=== PATIENT | female | born 1940 | race Hispanic/Latino ===

== ENCOUNTER 2016-11-07 12:01 | Inpatient (IN) | payer MEDICARE, OTHER ==
--- NOTE | 2016-11-07 12:27 | ED PDOC ---
Arrival/HPI - General Chief Complaint: Weakness/Neurological Deficit Time Seen by Provider: 11/07/16 12:02 Historian: Patient - History of Present Illness Narrative History of Present Illness (Text): 11/07/16 12:24 A 76 year old female was brought into the emergency department by daughter complaining of generalized weakness. Daughter reports patient fell twice last night and was unable to ambulate this morning due to her weakness. Patient reports she has been experiencing episodes of dizziness for the past few weeks causing her to fall. Patient notes back pain but denies any fever, chills, nausea, vomiting, abdominal pain, chest pain, shortness of breath, cough or any other complaints. Time/Duration: Other (few weeks) Symptom Course: Unchanged Quality: Other Context: Home Past Medical History - Provider Review Nursing Documentation Reviewed: Yes - Infectious Disease Hx of Infectious Diseases: None - Reproductive Menopause: Yes - Psychiatric Hx Substance Use: No Family/Social History - Physician Review Nursing Documentation Reviewed: Yes Family/Social History: No Known Family HX Smoking Status: Current Some Days Smoker Hx Alcohol Use: No Hx Substance Use: No Allergies/Home Meds Allergies/Adverse Reactions: Allergies No Known Allergies Allergy (Verified 11/07/16 12:09) Home Medications: Home Meds Medication Instructions Recorded Confirmed Fentanyl [Duragesic Patch] 100 mcg TOP Q72 11/07/16 11/07/16 Folic Acid [Folic Acid] 1 mg PO DAILY 11/07/16 11/07/16 Furosemide [Lasix] 40 mg PO DAILY 11/07/16 11/07/16 Gabapentin [Neurontin] 100 mg PO HS 11/07/16 11/07/16 Meloxicam [Mobic] 15 mg PO DAILY 11/07/16 11/07/16 Methotrexate [Methotrexate] 7 tab PO QWK 11/07/16 11/07/16 Valsartan/Hydrochlorothiazide 1 tab PO DAILY 11/07/16 11/07/16 [Diovan Hct 320-12.5 mg Tab] Zolpidem [Ambien] 10 mg PO HS 11/07/16 11/07/16 oxyCODONE [oxyCODONE Immediate 10 mg PO TID 11/07/16 11/07/16 Release Tab] Review of Systems - Physician Review All systems were reviewed & negative as marked: Yes - Review of Systems Constitutional: Other (Generalized weakness). absent: Fevers, Night Sweats Respiratory: absent: SOB, Cough Cardiovascular: absent: Chest Pain Gastrointestinal: absent: Abdominal Pain, Nausea, Vomiting Musculoskeletal: Back Pain Neurological: Dizziness Physical Exam Vital Signs Reviewed: Yes Vital Signs Temp Pulse Resp BP Pulse Ox 11/07/16 15:00 120 H 20 117/75 94 L 11/07/16 12:01 98.3 F 125 H 16 125/90 95 Temperature: Afebrile Blood Pressure: Normal Pulse: Tachycardic Respiratory Rate: Normal Appearance: Positive for: Well-Appearing, Non-Toxic, Comfortable Pain Distress: None Mental Status: Positive for: Alert and Oriented X 3 - Systems Exam Head: Present: Atraumatic, Normocephalic Pupils: Present: PERRL Extroacular Muscles: Present: EOMI Conjunctiva: Present: Normal Ears: Present: Other (Hard of hearing) Mouth: Present: Moist Mucous Membranes Neck: Present: Normal Range of Motion. No: MIDLINE TENDERNESS Respiratory/Chest: Present: Clear to Auscultation, Good Air Exchange. No: Respiratory Distress, Accessory Muscle Use Cardiovascular: Present: Regular Rate and Rhythm, Normal S1, S2. No: Murmurs Abdomen: Present: Normal Bowel Sounds. No: Tenderness, Distention, Peritoneal Signs Back: Present: Normal Inspection, Other (vertebral tenderness) Upper Extremity: Present: Normal Inspection, Normal ROM, NORMAL PULSES. No: Cyanosis, Edema Lower Extremity: Present: Edema (+1 pitting edema bilaterally), NORMAL PULSES, Normal ROM (in bilateral hips/knees), Other (Generalized weakness in bilateral extremities). No: CALF TENDERNESS, Tenderness Neurological: Present: GCS=15, CN II-XII Intact, Speech Normal, Motor Func Grossly Intact, Normal Sensory Function, Normal Cerebellar Funct, Norm Deep Tendon Reflexes. No: Other (neuro deficits) Skin: Present: Warm, Dry, Normal Color, Abrasion (superificial skin tear in right upper extremity ). No: Rashes Psychiatric: Present: Alert, Oriented x 3, Normal Insight, Normal Concentration Medical Decision Making ED Course and Treatment: 11/07/16 12:24 EKG shows multifocal atrial tachycardia at [address]/T wave changes. Interpreted by me. Report Date : 11/07/2016 13:13:19 Procedure: Chest xray Dictator : Nik Pascual MD IMPRESSION: There is a patchy infiltrate in the right upper lobe. Nodular densities are seen in the left upper lobe. These could also be secondary to pneumonia. Metastatic nodules cannot be excluded Report Date : 11/07/2016 13:29:56 PROCEDURE: CT HEAD WITHOUT CONTRAST. Dictator : Nik Pascual MD IMPRESSION: No acute findings Disc w Dr Tracey who will admit - Lab Interpretations Lab Results: 11/07/16 12:50 11/07/16 12:50 Lab Results 11/07/16 13:43: Urine Color Yellow, Urine Appearance Sl cloudy, Urine pH 6.0, Ur Specific [place] 1.025, Urine Protein 100 H, Urine Glucose (UA) Negative, Urine Ketones Negative, Urine Blood Negative, Urine Nitrate Negative, Urine Bilirubin Negative, Urine Urobilinogen 0.2, Ur Leukocyte Esterase Negative, Urine RBC Negative, Urine WBC 0 - 2, Urine Bacteria Trace 11/07/16 12:50: TSH 3rd Generation 0.44 L 11/07/16 12:50: Sodium 133, Potassium 3.2 L, Chloride 96 L, Carbon Dioxide 27, Anion Gap 13, BUN 28 H, Creatinine 1.2, Est GFR ( Amer) 53, Est GFR (Non- Af Amer) 44, Random Glucose 106, Calcium 9.0, Total Bilirubin 0.9, AST 22, ALT 41, Alkaline Phosphatase 183 H, Troponin I 0.02, NT-Pro-B Natriuret Pep 7750 H, Total Protein 5.9, Albumin 3.4, Globulin 2.5, Albumin/Globulin Ratio 1.4 11/07/16 12:50: pO2 132 H, VBG pH 7.49 H, VBG pCO2 38.0 L, VBG HCO3 29.0 H, VBG O2 Sat (Calc) 99.9 H, VBG Base Excess 5.4 H 11/07/16 12:50: WBC 20.7 H, RBC 3.32 L, Hgb 9.8 L, Hct 29.2 L, MCV 88.0, MCH 29.5, MCHC 33.6, RDW 19.1 H, Plt Count 332, MPV 9.7, Gran % 85.0 H, Lymph % ( Auto) 2.6 L, [place] % (Auto) 9.4 H, Eos % (Auto) 2.9, Baso % (Auto) 0.1, Gran # 17.56 H, Lymph # 0.5 L, [place] # 1.9 H, Eos # 0.6, Baso # 0.03 11/07/16 12:16: POC Glucose (mg/dL) 116 H - RAD Interpretation Radiology Orders: 11/07/16 12:24 HEAD W/O CONTRAST [CT] Stat CHEST PORTABLE [RAD] Stat - Medication Orders Current Medication Orders: Discontinued Medications Sodium Chloride (Sodium Chloride 0.9%) 500 mls @ 999 mls/hr IV .Q31M STA Stop: 11/07/16 14:20 Last Admin: 11/07/16 14:59 Dose: 999 mls/hr Ceftriaxone Sodium (Rocephin 1 Gram Ivpb) 1 gm in 100 mls @ 200 mls/hr IVPB STAT STA PRN Reason: Protocol Stop: 11/07/16 14:20 Last Admin: 11/07/16 14:53 Dose: 200 mls/hr Azithromycin (Zithromax 500mg In Ns) 500 mg in 250 mls @ 167 mls/hr IVPB STAT STA PRN Reason: Protocol Stop: 11/07/16 15:20 Oxycodone HCl (Oxycodone Immediate Release Tab) 5 mg PO STAT STA Stop: 11/07/16 13:58 Last Admin: 11/07/16 14:51 Dose: 5 mg - Scribe Statement The provider has reviewed the documentation as recorded by the Farzad Brice Provider Scribe Attestation: All medical record entries made by the Scribe were at my direction and personally dictated by me. I have reviewed the chart and agree that the record accurately reflects my personal performance of the history, physical exam, medical decision making, and the department course for this patient. I have also personally directed, reviewed, and agree with the discharge instructions and disposition. Disposition/Present on Arrival - Present on Arrival Any Indicators Present on Arrival: No History of DVT/PE: No History of Uncontrolled Diabetes: No Urinary Catheter: No History of Decub. Ulcer: No History Surgical Site Infection Following: None - Disposition Have Diagnosis and Disposition been Completed?: Yes Diagnosis: Pneumonia Disposition: HOSPITALIZED Disposition Time: 14:29 Patient Problems: Current Active Problems Problem Status Onset Pneumonia Acute Condition: STABLE
[2016-11-07 13:04] LABS: VENOUS BLOOD GAS BASE EXCESS 5.4 mmol/L (0.0-2.0); VENOUS BLOOD GAS PO2 132 mm/Hg (30-55); VENOUS BLOOD PH 7.49 (7.32-7.43)
[2016-11-07 13:07] LABS: BASO # 0.03 K/mm3 (0.0-2.0); BASO % 0.1 % (0.0-3.0); EOS # 0.6 (0.0-0.7); EOS % 2.9 % (1.5-5.0); GRAN # 17.56 (1.4-6.5); HEMOGLOBIN 9.8 gm/dL (12.0-16.0); LYMPH # 0.5 (1.2-3.4); LYMPH % 2.6 % (22.0-35.0); MEAN CORPUSCULAR HEMOGLOBIN 29.5 pg (25.0-35.0); MEAN CORPUSCULAR HGB CONC 33.6 g/dl (31.0-37.0); MEAN PLATELET VOLUME 9.7 fl (7.0-11.0); MONO # 1.9 (0.1-0.6); MONO % 9.4 % (1.0-6.0); PLATELET COUNT 332 10^3/uL (120.0-450.0); RBC 3.32 10^6/uL (3.5-6.1); RED CELL DISTRIBUTION WIDTH 19.1 % (11.5-14.5); WHITE BLOOD COUNT 20.7 10^3/ul (4.5-11.0)
[2016-11-07 13:13] LABS: ALB/GLOB RATIO 1.4 (1.1-1.8); ALBUMIN 3.4 g/dL (3.0-4.8)
--- NOTE | 2016-11-07 13:14 | RAD ---
HISTORY: weak COMPARISON: No prior. FINDINGS: LUNGS: There is a patchy infiltrate in the right upper lobe. Nodular densities are seen in the left upper lobe. These could also be secondary to pneumonia. Metastatic nodules cannot be excluded PLEURA: No significant pleural effusion identified, no pneumothorax apparent. CARDIOVASCULAR: Normal. OSSEOUS STRUCTURES: No significant abnormalities. VISUALIZED UPPER ABDOMEN: Normal. OTHER FINDINGS: None. IMPRESSION: There is a patchy infiltrate in the right upper lobe. Nodular densities are seen in the left upper lobe. These could also be secondary to pneumonia. Metastatic nodules cannot be excluded
[2016-11-07 13:24] LABS: TROPONIN I 0.02 ng/mL
--- NOTE | 2016-11-07 13:31 | CT ---
PROCEDURE: CT HEAD WITHOUT CONTRAST. HISTORY: weak, falls COMPARISON: None available. TECHNIQUE: Axial computed tomography images were obtained through the head/brain without intravenous contrast. Radiation dose: Total exam DLP = 688 mGy-cm. This CT exam was performed using one or more of the following dose reduction techniques: Automated exposure control, adjustment of the mA and/or kV according to patient size, and/or use of iterative reconstruction technique. FINDINGS: HEMORRHAGE: No intracranial hemorrhage. BRAIN: No mass effect or edema. No atrophy or chronic microvascular ischemic changes. VENTRICLES: Unremarkable. No hydrocephalus. CALVARIUM: Unremarkable. PARANASAL SINUSES: Unremarkable as visualized. No significant inflammatory changes. MASTOID AIR CELLS: Unremarkable as visualized. No inflammatory changes. OTHER FINDINGS: None. IMPRESSION: No acute findings
[2016-11-07] MEDS ORDERED: Sodium Chloride 0.9% 500 ML IV STA (13:50)
[2016-11-07] MEDS ORDERED: Azithromycin 500MG/NS 250ml 500 MG/250 ML BAG IVPB STA (13:51)
[2016-11-07] MEDS ORDERED: cefTRIAXone 1 gm 1 GM/100 ML BAG IVPB STA (13:51)
[2016-11-07] MEDS ORDERED: oxyCODONE 5 mg Immediate Release Tab PO STA (13:57)
[2016-11-07 14:01] LABS: URINE BILIRUBIN NEGATIVE (NEGATIVE); URINE BLOOD NEGATIVE (NEGATIVE); URINE GLUCOSE (UA) NEGATIVE (NEGATIVE); URINE LEUKOCYTE ESTERASE NEGATIVE Leu/uL (NEGATIVE); URINE NITRATE NEGATIVE (NEGATIVE); URINE PROTEIN 100 mg/dL (<30 mg/dL); URINE UROBILINOGEN 0.2 E.U./dL (<1 E.U./dL)
[2016-11-07 14:06] LABS: URINE APPEARANCE SL CLOUDY (CLEAR); URINE COLOR YELLOW (YELLOW)
[2016-11-07 14:11] LABS: URINE BACTERIA TRACE (NEG); URINE RBC NEGATIVE /hpf (0-2); URINE WBC 0 - 2 /hpf (0-6)
[2016-11-07] MEDS ORDERED: Potassium Chloride 20 mEq ER Tab PO STA (16:02)
[2016-11-07 18:26] VITALS: BMI 24.5
[2016-11-07] MEDS ORDERED: Albuterol-Ipratrop 3 mg / 0.5 (3 ml) UD IH PRN (19:19)
[2016-11-07] MEDS ORDERED: Dextrose 5%/0.45% NS 1,000 ML IV SCH (19:30)
[2016-11-07] MEDS ORDERED: oxyCODONE 10 mg Immediate Release Tab PO ONE (19:51)
--- NOTE | 2016-11-07 19:59 | CARD ---
APPROVED REPORT EKG Measurement Heart [id number] <Conclusion> Sinus tachycardia with premature supraventricular complexes with occasional premature ventricular complexes ST & T wave abnormality, consider lateral ischemia Abnormal ECG
--- NOTE | 2016-11-07 21:52 | CT ---
EXAM: CT Chest Without Intravenous Contrast CLINICAL HISTORY: 76 years old, female; Condition or disease; Other: Pnuemonia; Additional info: Rul pneumonia TECHNIQUE: Axial computed tomography images of the chest without intravenous contrast. This CT exam was performed using one or more of the following dose reduction techniques: automated exposure control, adjustment of the mA and/or kV according to patient size, and/or use of iterative reconstruction technique. MIP reconstructed images were created and reviewed. Coronal and sagittal reformatted images were created and reviewed. COMPARISON: CT CHEST W/O 10/10/2011 12:08:23 PM FINDINGS: Lungs/pleura: Multiple bilateral lung nodules and masses of variable size, appearance most consistent with metastatic disease. Correlate with history. Some of the nodules/masses demonstrate cavitation. Some of the masses abut the mediastinum and the pleura. In the right upper lobe there are increased interstitial markings and airspace disease in association with right hilar mass and adenopathy. Concerning for post obstructive pneumonic process. No pneumothorax. Evidence of trace left pleural fluid. Heart: Cardiomegaly. No significant pericardial effusion. Valvular and coronary artery calcification. Bones: Lytic lesion in the left T5 6 and 9 vertebral body with associated soft tissue mass impressing upon the spinal canal. Compression deformity of superior endplate of T12. Evidence of additional more subtle osseous metastases, subtle lytic focus in T6 vertebral body. Vasculature: Limited evaluation without contrast. Aortic aneurysm, the ascending aorta is measured at 5 cm in diameter, the descending thoracic aorta is measured at 3.3 cm in diameter. Atherosclerosis. Lymph nodes: Mediastinal and hilar adenopathy. Evaluation of doron limited without contrast. IMPRESSION: Multiple bilateral lung nodules and masses of variable size, appearance most consistent with metastatic disease. Correlate with history. Some of the nodules/masses demonstrate cavitation. Some of the masses abut the mediastinum and the pleura. In the right upper lobe there are increased interstitial markings and airspace disease in association with right hilar mass and adenopathy. Concerning for post obstructive pneumonic process. Lytic lesion in the left T5 6 and 9 vertebral body with associated soft tissue mass impressing upon the spinal canal. Compression deformity of superior endplate of T12. Evidence of additional more subtle osseous metastases, subtle lytic focus in T6 vertebral body. Adenopathy. Aortic aneurysm, the ascending aorta is measured at 5 cm in diameter, the descending thoracic aorta is measured at 3.3 cm in diameter. Atherosclerosis. Cardiomegaly. Valvular and coronary artery calcification. Correlate with history. Consider followup CT of the chest, abdomen and pelvis with contrast.
[2016-11-08] MEDS: Insulin Reg-MEDIUM-Coverage SC SCH ×3 (01:47→21:36)
[2016-11-08] MEDS: Pantoprazole 40 mg EC Tab PO SCH (06:08)
[2016-11-08 07:15] LABS: BASO # 0.04 K/mm3 (0.0-2.0); BASO % 0.2 % (0.0-3.0); EOS # 1.4 (0.0-0.7); EOS % 8.1 % (1.5-5.0); GRAN # 12.53 (1.4-6.5); GRAN % 74.4 % (50.0-68.0); HEMOGLOBIN 9.1 gm/dL (12.0-16.0); LYMPH # 0.6 (1.2-3.4); LYMPH % 3.5 % (22.0-35.0); MEAN CELL VOLUME 89.6 fL (80.0-105.0); MEAN CORPUSCULAR HEMOGLOBIN 29.5 pg (25.0-35.0); MEAN PLATELET VOLUME 9.6 fl (7.0-11.0); MONO # 2.3 (0.1-0.6); MONO % 13.8 % (1.0-6.0); PLATELET COUNT 335 10^3/uL (120.0-450.0); RBC 3.08 10^6/uL (3.5-6.1); RED CELL DISTRIBUTION WIDTH 19.3 % (11.5-14.5); WHITE BLOOD COUNT 16.9 10^3/ul (4.5-11.0)
[2016-11-08] MEDS: Albuterol-Ipratrop 3 mg / 0.5 (3 ml) UD IH SCH ×3 (07:16→20:00)
[2016-11-08 07:43] LABS: ALB/GLOB RATIO 1.2 (1.1-1.8); CALCIUM 8.5 mg/dL (8.4-10.5)
--- NOTE | 2016-11-08 08:32 | CP.PCM.CON ---
History of Present Illness - History of Present Illness History of Present Illness: WEAKNESS Review of Systems - Constitutional Constitutional: Anorexia, Weight Loss (30 POUNDS IN ONE YEAR), Weakness - EENT Eyes: Dry Eye Nose/Mouth/Throat: Dry Mouth - Respiratory Respiratory: Cough, Pain with Coughing Past Patient History - Infectious Disease Hx of Infectious Diseases: None - Past Medical History & Family History Past Medical History?: Yes - Past Social History Smoking Status: Heavy Smoker > 10 Cigarettes Daily - CARDIAC Hx Hypertension: Yes - PULMONARY Hx Chronic Obstructive Pulmonary Disease (COPD): Yes - HEENT Hx HEENT Problems: Yes (wears glasses) - INTEGUMENTARY Hx Cellulitis: Yes Other/Comment: ulcers to lower extremeties - MUSCULOSKELETAL/RHEUMATOLOGICAL Hx Arthritis: Yes Hx Back Pain: Yes (BUT NOW MORE BACK PAIN) Hx Falls: Yes Hx Fractures: Yes Hx Osteoarthritis: Yes - PSYCHIATRIC Hx Substance Use: No - SURGICAL HISTORY Hx Joint Replacement: Yes (left knee) Meds Allergies/Adverse Reactions: Allergies Allergy/AdvReac Type Severity Reaction Status Date / Time No Known Allergies Allergy Verified 11/07/16 12:09 - Medications Medications: Current Medications Acetaminophen (Tylenol 325mg Tab) 650 mg PO Q6H PRN PRN Reason: Fever >100.4 F Albuterol/Ipratropium (Duoneb 3 Mg/0.5 Mg (3 Ml) Ud) 3 ml IH [id number] CLARA Last Admin: 11/08/16 07:16 Dose: 3 ml Albuterol/Ipratropium (Duoneb 3 Mg/0.5 Mg (3 Ml) Ud) 3 ml IH Q2H PRN PRN Reason: Shortness of Breath Fentanyl (Duragesic) 1 patch TD Q72H CLARA Folic Acid (Folic Acid) 1 mg PO DAILY CLARA Furosemide (Lasix) 40 mg IVP DAILY CLARA Gabapentin (Neurontin) 100 mg PO HS CLARA PRN Reason: Protocol Last Admin: 11/07/16 21:16 Dose: 100 mg Ceftriaxone Sodium (Rocephin 1 Gram Ivpb) 1 gm in 100 mls @ 100 mls/hr IVPB DAILY CLARA PRN Reason: Protocol Azithromycin (Zithromax 500mg In Ns) 500 mg in 250 mls @ 167 mls/hr IVPB DAILY CLARA PRN Reason: Protocol Insulin Human Regular (Humulin R Med) 0 units SC ACHS CLARA PRN Reason: Protocol Last Admin: 11/08/16 07:58 Dose: Not Given Oxycodone HCl (Oxycodone Immediate Release Tab) 10 mg PO TID CLARA Pantoprazole Sodium (Protonix Ec Tab) 40 mg PO 0630 [facility] Last Admin: 11/08/16 06:08 Dose: 40 mg Valsartan (Diovan) 320 mg PO DAILY CLARA Zolpidem Tartrate (Ambien) 5 mg PO HS CLARA PRN Reason: Protocol Last Admin: 11/07/16 21:16 Dose: 5 mg Physical Exam - Constitutional Appears: Well - Head Exam Head Exam: ATRAUMATIC, NORMAL INSPECTION, NORMOCEPHALIC - Eye Exam Eye Exam: EOMI, Normal appearance, PERRL Pupil Exam: NORMAL ACCOMODATION, PERRL - ENT Exam ENT Exam: Mucous Membranes Moist, Normal Exam - Neck Exam Neck exam: Positive for: Normal Inspection - Respiratory Exam Respiratory Exam: Clear to Auscultation Bilateral, NORMAL BREATHING PATTERN - Cardiovascular Exam Cardiovascular Exam: REGULAR RHYTHM - GI/Abdominal Exam GI & Abdominal Exam: Normal Bowel Sounds, Soft. absent: Tenderness - Rectal Exam Rectal Exam: NORMAL INSPECTION - Exam Exam: Circumcision, NORMAL INSPECTION External exam: NORMAL EXTERNAL EXAM Speculum exam: NORMAL SPECULUM EXAM Bimanual exam: NORMAL BIMANUAL EXAM - Extremities Exam Extremities exam: Positive for: full ROM (OPEN ULCER RIGHT ARM BUT NO INFEVTION) , normal inspection - Back Exam Back exam: muscle spasm, NORMAL INSPECTION, tenderness - Neurological Exam Neurological exam: Alert, CN II-XII Intact, Normal Gait, Oriented x3, Reflexes Normal - Psychiatric Exam Psychiatric exam: Normal Affect, Normal Mood - Skin Skin Exam: Dry, Intact, Normal Color, Warm Results - Vital Signs Recent Vital Signs: Last Vital Signs Temp 98.2 F 11/08/16 07:38 Pulse 83 11/08/16 07:38 Resp 20 11/08/16 07:38 BP 129/56 L 11/08/16 07:38 Pulse Ox 96 11/08/16 07:38 - Labs Result Diagrams: 11/08/16 06:30 11/08/16 06:30 Labs: Laboratory Results - last 24 hr 11/07/16 11/08/16 11/08/16 21:11 06:30 06:30 WBC 16.9 H RBC 3.08 L Hgb 9.1 L Hct 27.6 L MCV 89.6 MCH 29.5 MCHC 33.0 RDW 19.3 H Plt Count 335 MPV 9.6 Gran % 74.4 H Lymph % (Auto) 3.5 L [place] % (Auto) 13.8 H Eos % (Auto) 8.1 H Baso % (Auto) 0.2 Gran # 12.53 H Lymph # 0.6 L [place] # 2.3 H Eos # 1.4 H Baso # 0.04 Sodium 133 Potassium 3.8 Chloride 98 Carbon Dioxide 26 Anion Gap 13 BUN 30 H Creatinine 1.3 Est GFR ( Amer) 48 Est GFR (Non-Af Amer) 40 POC Glucose (mg/dL) 125 H Random Glucose 101 Calcium 8.5 Phosphorus 4.0 Magnesium 2.0 Total Bilirubin 0.8 AST 20 ALT 36 Alkaline Phosphatase 172 H Total Protein 5.5 L Albumin 3.0 Globulin 2.5 Albumin/Globulin Ratio 1.2 Assessment & Plan (1) Anemia Status: Acute (2) Sepsis Status: Acute (3) Obstructive pneumonia Status: Acute (4) Pulmonary nodule Status: Acute (5) Metastasis Status: Acute (6) Bone metastases Status: Acute (7) Mediastinal adenopathy Status: Acute (8) Aortic aneurysm Status: Acute - Assessment and Plan (Free Text) Plan: ROCE /DOXY WORK UP FOR METS PROGNOSIS POOR
[2016-11-08] MEDS ORDERED: VALSARTAN PO SCH (10:00)
[2016-11-08] MEDS ORDERED: HYDROCHLOROTHIAZIDE PO SCH (10:00)
[2016-11-08] MEDS ORDERED: [UNRECOGNIZED DRUG - OTHER] PO SCH (10:00)
[2016-11-08] MEDS ORDERED: oxyCODONE 10 mg Immediate Release Tab PO SCH (10:00)
[2016-11-08] MEDS ORDERED: Azithromycin 500MG/NS 250ml 500 MG/250 ML BAG IVPB SCH (10:00)
[2016-11-08] MEDS: cefTRIAXone 1 gm 1 GM/100 ML BAG IVPB SCH (10:33)
--- NOTE | 2016-11-08 23:23 | CARD ---
APPROVED REPORT EXAM: Two-dimensional and M-mode echocardiogram with Doppler and color Doppler. INDICATION EF/LVFX 2D DIMENSIONS Left Atrium (2D)3.8 (1.6-4.0cm)IVSd1.3 (0.7-1.1cm) LVDd4.0 (3.9-5.9cm)LVOT Diameter2.0 (1.8-2.4cm) PWd1.3 (0.7-1.1cm)LVDs2.8 (2.5-4.0cm) FS (%) 30.7 %LVEF (%)58.8 (>50%) M-Mode DIMENSIONS Aortic Root3.70 (2.2-3.7cm)Aortic Cusp Exc.1.00 (1.5-2.0cm) Aortic Valve AoV Peak Cxmwlqny574.0cm/sAoV VTI47.7cmAO Peak GR.41mmHg LVOT Peak Zzxopjkl615.0cm/sLVOT VTI17.70cmAO Mean GR.18mmHg LUANN (VMAX)1.92jk8LPP (VTI)1.93ab0IX P 1/2 Bonn761mz Mitral Valve MV E Odutdcnr82.1cm/sMV A Afhcdiaj245.0cm/sE/A ratio0.5 TDI Lateral E' Peak V6.82cm/sMedial E' Peak V3.61cm/sE/Lateral E'9.7 E/Medial E'18.3 Pulmonary Valve PV Peak Sqwomaow05.7cm/sPV Peak Grad.4mmHg Tricuspid Valve TR Peak Bhhijmay829no/sRAP FYTCOWNS68sqTgER Peak Gr.51mmHg LICO61nmMp LEFT VENTRICLE The left ventricle is normal size. There is mild concentric left ventricular hypertrophy. The left ventricular function is normal.EF-55% There is normal LV segmental wall motion. Transmitral Doppler flow pattern is Grade III-reversible restrictive diastolic dysfunction. No left ventricle thrombus noted on this study. There is no ventricular septal defect visualized. There is no left ventricular aneurysm. There is no mass noted in the left ventricle. RIGHT VENTRICLE The right ventricle is mildly dilated. There is normal right ventricular wall thickness. Systolic function is mildly reduced. ATRIA The left atrium is mildly dilated in long [place]. The right atrium is mildly dilated in long axis The interatrial septum is intact with no evidence for an atrial septal defect. AORTIC VALVE The aortic valve is calcified and displays decreased opening. There is severe aortic regurgitation. There is moderate valvular aortic stenosis. There is no aortic valvular vegetation. MITRAL VALVE The mitral valve is calcified but opens well. Mitral regurgitation is trace. There is no mitral valve stenosis. There is no evidence of mitral valve prolapse. TRICUSPID VALVE The tricuspid valve leaflets are thickened , but open well. There is moderate tricuspid regurgitation.RVSP-61 mmof hg. There is no tricuspid valve stenosis. There is no tricuspid valve prolapse or vegetation. PULMONIC VALVE The pulmonic valve is mildly thickened. There is mild to moderate pulmonic valvular regurgitation. There is no pulmonic valvular stenosis. GREAT VESSELS The aortic root is normal in size. The ascending aorta is normal in size. The pulmonary artery is normal. The IVC was not visualized. PERICARDIAL EFFUSION There is no pleural effusion. There is no pericardial effusion. <Conclusion> The left ventricle is normal size. There is mild concentric left ventricular hypertrophy. The left ventricular function is normal.EF-55% There is severe aortic regurgitation. There is moderate valvular aortic stenosis. Mitral regurgitation is trace. There is moderate tricuspid regurgitation.RVSP-61 mmof hg. There is mild to moderate pulmonic valvular regurgitation. No Vegetation or thrombus noted.
[2016-11-09] MEDS: Albuterol-Ipratrop 3 mg / 0.5 (3 ml) UD IH SCH ×5 (01:11→21:15)
[2016-11-09] MEDS: MethylPREDNISolone 40 mg Vial IV SCH ×3 (05:03→21:21)
[2016-11-09] MEDS: Pantoprazole 40 mg EC Tab PO SCH (06:10)
[2016-11-09] MEDS: oxyCODONE 10 mg Immediate Release Tab PO PRN ×3 (06:13→21:22)
[2016-11-09 07:51] LABS: BASO # 0.09 K/mm3 (0.0-2.0); BASO % 0.4 % (0.0-3.0); EOS # 1.6 (0.0-0.7); EOS % 7.7 % (1.5-5.0); GRAN # 15.27 (1.4-6.5); HEMOGLOBIN 9.2 gm/dL (12.0-16.0); LYMPH # 0.7 (1.2-3.4); LYMPH % 3.5 % (22.0-35.0); MEAN CELL VOLUME 89.9 fL (80.0-105.0); MEAN CORPUSCULAR HGB CONC 32.3 g/dl (31.0-37.0); MEAN PLATELET VOLUME 9.6 fl (7.0-11.0); MONO # 2.7 (0.1-0.6); MONO % 13.4 % (1.0-6.0); PLATELET COUNT 375 10^3/uL (120.0-450.0); RBC 3.17 10^6/uL (3.5-6.1); RED CELL DISTRIBUTION WIDTH 19.5 % (11.5-14.5); WHITE BLOOD COUNT 20.4 10^3/ul (4.5-11.0)
[2016-11-09 07:53] LABS: ALB/GLOB RATIO 1.3 (1.1-1.8); ALBUMIN 3.1 g/dL (3.0-4.8); CALCIUM 8.6 mg/dL (8.4-10.5)
[2016-11-09] MEDS: Insulin Reg-MEDIUM-Coverage SC SCH ×4 (08:09→21:27)
[2016-11-09] MEDS ORDERED: Barium Sulfate Susp 2.1% w/v, 2.0% w/w 450 mL Bottle PO ONE (08:20)
[2016-11-09] MEDS: Silver Sulfadiazine 1% Cream (20 gm) TOP SCH (09:27)
[2016-11-09] MEDS: cefTRIAXone 1 gm 1 GM/100 ML BAG IVPB SCH (09:27)
[2016-11-09] MEDS: Enoxaparin 30 mg Syringe SC SCH (11:19)
--- NOTE | 2016-11-09 11:48 | CP.PCM.PN ---
Subjective - Date & Time of Evaluation Date of Evaluation: 11/09/16 Time of Evaluation: 08:00 - Subjective Subjective: WEAK Objective - Vital Signs/Intake and Output Vital Signs (last 24 hours): Temp Pulse Resp BP Pulse Ox 98.4 F 101 H 22 112/64 91 L 11/09/16 08:47 11/09/16 08:47 11/09/16 08:47 11/09/16 09:18 11/09/16 08:47 Intake and Output: 11/09/16 11/09/16 06:59 18:59 Intake Total 180 Balance 180 - Medications Medications: Current Medications Acetaminophen (Tylenol 325mg Tab) 650 mg PO Q6H PRN PRN Reason: Fever >100.4 F Albuterol/Ipratropium (Duoneb 3 Mg/0.5 Mg (3 Ml) Ud) 3 ml IH [id number] [facility] Last Admin: 11/09/16 07:10 Dose: 3 ml Albuterol/Ipratropium (Duoneb 3 Mg/0.5 Mg (3 Ml) Ud) 3 ml IH Q2H PRN PRN Reason: Shortness of Breath Doxycycline Hyclate (Doryx) 100 mg PO Q12 [facility] PRN Reason: Protocol Stop: 11/17/16 10:01 Last Admin: 11/09/16 09:19 Dose: 100 mg Enoxaparin Sodium (Lovenox) 30 mg SC DAILY [facility] PRN Reason: Protocol Fentanyl (Duragesic) 1 patch TD Q72H [facility] Folic Acid (Folic Acid) 1 mg PO DAILY [facility] Last Admin: 11/09/16 09:19 Dose: 1 mg Furosemide (Lasix) 40 mg IVP DAILY [facility] Last Admin: 11/09/16 09:18 Dose: 40 mg Gabapentin (Neurontin) 100 mg PO HS [facility] PRN Reason: Protocol Last Admin: 11/08/16 21:35 Dose: 100 mg Ceftriaxone Sodium (Rocephin 1 Gram Ivpb) 1 gm in 100 mls @ 100 mls/hr IVPB DAILY [facility] PRN Reason: Protocol Last Admin: 11/09/16 09:27 Dose: 100 mls/hr Insulin Human Regular (Humulin R Med) 0 units SC ACHS [facility] PRN Reason: Protocol Last Admin: 11/08/16 21:36 Dose: Not Given Methylprednisolone (Solu-Medrol) 40 mg IV Q12 [facility] Last Admin: 11/09/16 09:18 Dose: 40 mg Oxycodone HCl (Oxycodone Immediate Release Tab) 10 mg PO TID PRN PRN Reason: Pain, Mild (1-3) Last Admin: 11/09/16 06:13 Dose: 10 mg Pantoprazole Sodium (Protonix Ec Tab) 40 mg PO 0630 [facility] Last Admin: 11/09/16 06:10 Dose: 40 mg Silver Sulfadiazine (Silvadene 1% 20 Gm) 1 ea TOP DAILY [facility] Last Admin: 11/09/16 09:27 Dose: 1 appl Valsartan (Diovan) 320 mg PO DAILY [facility] Last Admin: 11/09/16 09:19 Dose: 320 mg Zolpidem Tartrate (Ambien) 5 mg PO HS [facility] PRN Reason: Protocol Last Admin: 11/08/16 21:35 Dose: 5 mg - Labs Labs: 11/09/16 07:00 11/09/16 07:00 - Constitutional Appears: Well - Head Exam Head Exam: ATRAUMATIC, NORMAL INSPECTION, NORMOCEPHALIC - Eye Exam Eye Exam: EOMI, Normal appearance, PERRL Pupil Exam: NORMAL ACCOMODATION, PERRL - ENT Exam ENT Exam: Mucous Membranes Moist, Normal Exam - Neck Exam Neck Exam: Full ROM, Normal Inspection. absent: Lymphadenopathy - Respiratory Exam Respiratory Exam: Clear to Ausculation Bilateral, NORMAL BREATHING PATTERN - Cardiovascular Exam Cardiovascular Exam: REGULAR RHYTHM, +S1, +S2. absent: Murmur - GI/Abdominal Exam GI & Abdominal Exam: Soft, Normal Bowel Sounds. absent: Tenderness - Rectal Exam Rectal Exam: NORMAL INSPECTION - Exam Exam: Circumcision, NORMAL INSPECTION External exam: NORMAL EXTERNAL EXAM Speculum exam: NORMAL SPECULUM EXAM Bimanual exam: NORMAL BIMANUAL EXAM - Extremities Exam Extremities Exam: Full ROM, Normal Capillary Refill, Normal Inspection. absent : Joint Swelling, Pedal Edema - Back Exam Back Exam: NORMAL INSPECTION - Neurological Exam Neurological Exam: Alert, Awake, CN II-XII Intact, Normal Gait, Oriented x3 - Psychiatric Exam Psychiatric exam: Normal Affect, Normal Mood - Skin Skin Exam: Dry, Intact, Normal Color, Warm Assessment and Plan (1) Anemia Status: Acute (2) Sepsis Status: Acute (3) Obstructive pneumonia Status: Acute (4) Pulmonary nodule Status: Acute (5) Metastasis Status: Acute (6) Bone metastases Status: Acute (7) Mediastinal adenopathy Status: Acute (8) Aortic aneurysm Status: Acute - Assessment and Plan (Free Text) Plan: ABX WORK UP PENDING D/W WITH FAMILY AND PMD
--- NOTE | 2016-11-09 14:41 | CT ---
PROCEDURE: CT Abdomen and Pelvis with contrast HISTORY: mets COMPARISON: 11/07/2016 CT thorax TECHNIQUE: Contrast dose: Oral contrast only. Radiation dose: Total exam DLP = 322.21 mGy-cm. This CT exam was performed using one or more of the following dose reduction techniques: Automated exposure control, adjustment of the mA and/or kV according to patient size, and/or use of iterative reconstruction technique. FINDINGS: LOWER THORAX: Unremarkable. LIVER: Hepatomegaly, hepatic metastatic disease within innumerable lesions affecting both right and left hepatic lobes. The largest mass in the right hepatic lobe, gena hepatis region measures 5.9 x 7.7 cm. GALLBLADDER AND BILE DUCTS: Unremarkable. PANCREAS: Unremarkable. No gross lesion or ductal dilatation. SPLEEN: Unremarkable. ADRENALS: Unremarkable. No mass. KIDNEYS AND URETERS: Atrophic left kidney, compensatory hypertrophy right kidney. VASCULATURE: Unremarkable. No aortic aneurysm. BOWEL: Mild dilatation of proximal small bowel without obvious, apparent transition point. Early, incomplete small bowel obstruction should be considered. No mechanical obstructing etiologies identified. APPENDIX: Normal appendix. PERITONEUM: Unremarkable. No free fluid. No free air. LYMPH NODES: Unremarkable. No enlarged lymph nodes. BLADDER: Unremarkable. REPRODUCTIVE: Surgically absent. All BONES: Metastatic disease primarily lytic involving the right ischium and pubis. Additional soft tissue masses associated with antral lateral left ribs. Fracture deformity T12 vertebral body OTHER FINDINGS: Diffuse subcutaneous edema comment anasarca. IMPRESSION: Hepatic and osseous metastatic disease described above. Incompletely visualize common known pulmonary metastatic disease. Proximal small bowel dilatation which may reflect early, incomplete small bowel obstruction. Additional benign and/or incidental findings described above.
[2016-11-09] MEDS ORDERED: DiphenhydrAMINE 50 mg/ml Inj IVP PRN (23:24)
[2016-11-09] MEDS ORDERED: DiphenhydrAMINE 50 mg/ml Inj IVP ONE (23:32)
[2016-11-10] MEDS: Albuterol-Ipratrop 3 mg / 0.5 (3 ml) UD IH SCH ×4 (02:40→19:40)
--- NOTE | 2016-11-10 04:34 | CP.PCM.PN ---
Subjective - Date & Time of Evaluation Date of Evaluation: 11/10/16 Time of Evaluation: 04:28 - Subjective Subjective: called by nurse pt fell in the toilet .pt states she felt the urge to go and was trying to hasten . and fell in the toilet landed oher butt . no loc did not hit the head. no complaints. Objective - Vital Signs/Intake and Output Vital Signs (last 24 hours): Temp Pulse Resp BP Pulse Ox 97.9 F 98 H 18 115/70 98 11/09/16 16:15 11/09/16 16:15 11/09/16 16:15 11/09/16 16:15 11/09/16 16:15 Intake and Output: 11/09/16 11/10/16 18:59 06:59 Intake Total 840 760 Balance 840 760 - Medications Medications: Current Medications Acetaminophen (Tylenol 325mg Tab) 650 mg PO Q6H PRN PRN Reason: Fever >100.4 F Albuterol/Ipratropium (Duoneb 3 Mg/0.5 Mg (3 Ml) Ud) 3 ml IH [id number] [facility] Last Admin: 11/10/16 02:40 Dose: Not Given Albuterol/Ipratropium (Duoneb 3 Mg/0.5 Mg (3 Ml) Ud) 3 ml IH Q2H PRN PRN Reason: Shortness of Breath Alprazolam (Xanax) 0.25 mg PO HS PRN; Protocol PRN Reason: Sleep Stop: 11/16/16 22:01 Last Admin: 11/09/16 21:22 Dose: 0.25 mg Doxycycline Hyclate (Doryx) 100 mg PO Q12 [facility] PRN Reason: Protocol Stop: 11/17/16 10:01 Last Admin: 11/09/16 21:21 Dose: 100 mg Enoxaparin Sodium (Lovenox) 30 mg SC DAILY [facility] PRN Reason: Protocol Last Admin: 11/09/16 11:19 Dose: 30 mg Fentanyl (Duragesic) 1 patch TD Q72H [facility] Folic Acid (Folic Acid) 1 mg PO DAILY [facility] Last Admin: 11/09/16 09:19 Dose: 1 mg Furosemide (Lasix) 40 mg IVP DAILY [facility] Last Admin: 11/09/16 09:18 Dose: 40 mg Gabapentin (Neurontin) 100 mg PO HS [facility] PRN Reason: Protocol Last Admin: 11/09/16 21:22 Dose: 100 mg Ceftriaxone Sodium (Rocephin 1 Gram Ivpb) 1 gm in 100 mls @ 100 mls/hr IVPB DAILY [facility] PRN Reason: Protocol Last Admin: 11/09/16 09:27 Dose: 100 mls/hr Insulin Human Regular (Humulin R Med) 0 units SC ACHS [facility] PRN Reason: Protocol Last Admin: 11/09/16 21:27 Dose: Not Given Methylprednisolone (Solu-Medrol) 40 mg IV Q12 [facility] Last Admin: 11/09/16 21:21 Dose: 40 mg Oxycodone HCl (Oxycodone Immediate Release Tab) 10 mg PO TID PRN PRN Reason: Pain, Mild (1-3) Last Admin: 11/09/16 21:22 Dose: 10 mg Pantoprazole Sodium (Protonix Ec Tab) 40 mg PO 0630 [facility] Last Admin: 11/09/16 06:10 Dose: 40 mg Silver Sulfadiazine (Silvadene 1% 20 Gm) 1 ea TOP DAILY [facility] Last Admin: 11/09/16 09:27 Dose: 1 appl Valsartan (Diovan) 320 mg PO DAILY [facility] Last Admin: 11/09/16 09:19 Dose: 320 mg - Labs Labs: 11/09/16 07:00 11/09/16 07:00 - Constitutional Appears: No Acute Distress - Head Exam Head Exam: NORMOCEPHALIC - Eye Exam Eye Exam: PERRL - ENT Exam ENT Exam: Mucous Membranes Moist - Neck Exam Neck Exam: Full ROM - Cardiovascular Exam Cardiovascular Exam: RRR, +S1, +S2 - GI/Abdominal Exam GI & Abdominal Exam: Soft, Normal Bowel Sounds - Rectal Exam Rectal Exam: Deferred - Extremities Exam Extremities Exam: Full ROM - Neurological Exam Neurological Exam: Alert, Awake, Oriented x3 - Psychiatric Exam Psychiatric exam: Normal Mood - Skin Skin Exam: Dry, Warm Assessment and Plan - Assessment and Plan (Free Text) Assessment: s/p fall.no injury noted. Plan: fall precautions.
[2016-11-10] MEDS: Pantoprazole 40 mg EC Tab PO SCH ×2 (05:30→06:32)
[2016-11-10] MEDS: oxyCODONE 10 mg Immediate Release Tab PO PRN ×2 (06:31→21:49)
[2016-11-10 08:13] LABS: FREE T4 1.55 ng/dL (0.78-2.19)
[2016-11-10] MEDS: Insulin Reg-MEDIUM-Coverage SC SCH ×4 (09:18→16:27)
[2016-11-10] MEDS: Enoxaparin 30 mg Syringe SC SCH (09:24)
[2016-11-10] MEDS: MethylPREDNISolone 40 mg Vial IV SCH (09:36)
--- NOTE | 2016-11-10 09:54 | CP.PCM.PN ---
Subjective - Date & Time of Evaluation Date of Evaluation: 11/10/16 Time of Evaluation: 08:30 - Subjective Subjective: WEAK Objective - Vital Signs/Intake and Output Vital Signs (last 24 hours): Temp Pulse Resp BP Pulse Ox 98.3 F 94 H 20 136/75 93 L 11/10/16 07:30 11/10/16 07:30 11/10/16 07:30 11/10/16 09:26 11/10/16 07:30 Intake and Output: 11/10/16 11/10/16 06:59 18:59 Intake Total 1000 Output Total 300 Balance 700 - Medications Medications: Current Medications Acetaminophen (Tylenol 325mg Tab) 650 mg PO Q6H PRN PRN Reason: Fever >100.4 F Albuterol/Ipratropium (Duoneb 3 Mg/0.5 Mg (3 Ml) Ud) 3 ml IH [id number] [facility] Last Admin: 11/10/16 07:05 Dose: 3 ml Albuterol/Ipratropium (Duoneb 3 Mg/0.5 Mg (3 Ml) Ud) 3 ml IH Q2H PRN PRN Reason: Shortness of Breath Alprazolam (Xanax) 0.25 mg PO HS PRN; Protocol PRN Reason: Sleep Stop: 11/16/16 22:01 Last Admin: 11/09/16 21:22 Dose: 0.25 mg Doxycycline Hyclate (Doryx) 100 mg PO Q12 [facility] PRN Reason: Protocol Stop: 11/17/16 10:01 Last Admin: 11/09/16 21:21 Dose: 100 mg Enoxaparin Sodium (Lovenox) 30 mg SC DAILY [facility] PRN Reason: Protocol Last Admin: 11/10/16 09:24 Dose: 30 mg Fentanyl (Duragesic) 1 patch TD Q72H [facility] Folic Acid (Folic Acid) 1 mg PO DAILY [facility] Last Admin: 11/09/16 09:19 Dose: 1 mg Furosemide (Lasix) 40 mg IVP DAILY [facility] Last Admin: 11/10/16 09:26 Dose: 40 mg Gabapentin (Neurontin) 100 mg PO HS [facility] PRN Reason: Protocol Last Admin: 11/09/16 21:22 Dose: 100 mg Ceftriaxone Sodium (Rocephin 1 Gram Ivpb) 1 gm in 100 mls @ 100 mls/hr IVPB DAILY [facility] PRN Reason: Protocol Last Admin: 11/09/16 09:27 Dose: 100 mls/hr Insulin Human Regular (Humulin R Med) 0 units SC ACHS [facility] PRN Reason: Protocol Last Admin: 11/10/16 09:18 Dose: Not Given Methylprednisolone (Solu-Medrol) 40 mg IV Q12 [facility] Last Admin: 11/10/16 09:36 Dose: 40 mg Oxycodone HCl (Oxycodone Immediate Release Tab) 10 mg PO TID PRN PRN Reason: Pain, Mild (1-3) Last Admin: 11/10/16 06:31 Dose: 10 mg Pantoprazole Sodium (Protonix Ec Tab) 40 mg PO 0630 [facility] Last Admin: 11/10/16 06:32 Dose: 40 mg Silver Sulfadiazine (Silvadene 1% 20 Gm) 1 ea TOP DAILY [facility] Last Admin: 11/09/16 09:27 Dose: 1 appl Valsartan (Diovan) 320 mg PO DAILY [facility] Last Admin: 11/10/16 09:21 Dose: 320 mg - Labs Labs: 11/09/16 07:00 11/09/16 07:00 - Constitutional Appears: Well - Head Exam Head Exam: ATRAUMATIC, NORMAL INSPECTION, NORMOCEPHALIC - Eye Exam Eye Exam: EOMI, Normal appearance, PERRL Pupil Exam: NORMAL ACCOMODATION, PERRL - ENT Exam ENT Exam: Mucous Membranes Moist, Normal Exam - Neck Exam Neck Exam: Full ROM, Normal Inspection. absent: Lymphadenopathy - Respiratory Exam Respiratory Exam: Clear to Ausculation Bilateral, NORMAL BREATHING PATTERN - Cardiovascular Exam Cardiovascular Exam: REGULAR RHYTHM, +S1, +S2. absent: Murmur - GI/Abdominal Exam GI & Abdominal Exam: Soft, Normal Bowel Sounds. absent: Tenderness - Rectal Exam Rectal Exam: NORMAL INSPECTION - Exam Exam: Circumcision, NORMAL INSPECTION External exam: NORMAL EXTERNAL EXAM Speculum exam: NORMAL SPECULUM EXAM Bimanual exam: NORMAL BIMANUAL EXAM - Extremities Exam Extremities Exam: Full ROM, Normal Capillary Refill, Normal Inspection. absent : Joint Swelling, Pedal Edema - Back Exam Back Exam: NORMAL INSPECTION - Neurological Exam Neurological Exam: Alert, Awake, CN II-XII Intact, Normal Gait, Oriented x3 - Psychiatric Exam Psychiatric exam: Normal Affect, Normal Mood - Skin Skin Exam: Dry, Intact, Normal Color, Warm Assessment and Plan (1) Anemia Status: Acute (2) Sepsis Status: Acute (3) Obstructive pneumonia Status: Acute (4) Pulmonary nodule Status: Acute (5) Metastasis Status: Acute (6) Bone metastases Status: Acute (7) Mediastinal adenopathy Status: Acute (8) Aortic aneurysm Status: Acute (9) Hepatic metastases Status: Acute (10) Bacterial pneumonia Status: Acute (11) Elevated procalcitonin Status: Acute - Assessment and Plan (Free Text) Plan: ALAN / DOXY POOR PERFORM STATUS ?BX ? HOSPICE
[2016-11-10] MEDS: cefTRIAXone 1 gm 1 GM/100 ML BAG IVPB SCH (11:41)
--- NOTE | 2016-11-10 13:23 | US ---
HISTORY: Leg pain and swelling. Evaluate for DVT PHYSICIAN(S): Alex Jules MD. TECHNIQUE: Duplex sonography and color-flow Doppler with graded compression were used to evaluate the deep venous systems of both lower extremities. The exam is somewhat limited by edema. FINDINGS: The visualized deep venous systems of both lower extremities are sonographically normal and compressible. Normal wave forms and augmentation are seen. There is no sonographic evidence for deep venous thrombosis in the visualized segments of both lower extremities. IMPRESSION: No sonographic evidence for deep venous thrombosis in the visualized segments of both lower extremities.
[2016-11-10] MEDS: Silver Sulfadiazine 1% Cream (20 gm) TOP SCH (13:25)
[2016-11-11] MEDS: Insulin Reg-MEDIUM-Coverage SC SCH ×5 (01:13→21:49)
[2016-11-11] MEDS: Albuterol-Ipratrop 3 mg / 0.5 (3 ml) UD IH SCH ×4 (01:34→20:07)
[2016-11-11] MEDS: oxyCODONE 10 mg Immediate Release Tab PO PRN ×3 (06:13→21:49)
[2016-11-11] MEDS: Pantoprazole 40 mg EC Tab PO SCH (06:14)
[2016-11-11] MEDS: Enoxaparin 30 mg Syringe SC SCH (10:51)
--- NOTE | 2016-11-11 11:15 | RAD ---
PROCEDURE: Radiographs of the left ribs HISTORY: r/o rib fracture COMPARISON: None available. TECHNIQUE: Multiple views of left ribs FINDINGS: LEFT RIBS: Nondisplaced fractures of left 7th and 8th ribs. LUNGS: Clear. PLEURA: No pneumothorax or pleural fluid. CARDIOVASCULAR: Normal sized heart. No pulmonary vascular congestion. OTHER FINDINGS: None. IMPRESSION: Nondisplaced fractures of left 7th and 8th ribs. No additional abnormality.
--- NOTE | 2016-11-11 12:01 | CP.PCM.PN ---
Subjective - Date & Time of Evaluation Date of Evaluation: 11/11/16 Time of Evaluation: 09:00 - Subjective Subjective: WEAK Objective - Vital Signs/Intake and Output Vital Signs (last 24 hours): Temp Pulse Resp BP Pulse Ox 98.0 F 97 H 22 116/61 98 11/11/16 08:11 11/11/16 08:11 11/11/16 08:11 11/11/16 10:49 11/11/16 08:11 Intake and Output: 11/11/16 11/11/16 06:59 18:59 Intake Total 540 Balance 540 - Medications Medications: Current Medications Acetaminophen (Tylenol 325mg Tab) 650 mg PO Q6H PRN PRN Reason: Fever >100.4 F Last Admin: 11/11/16 08:01 Dose: 650 mg Albuterol/Ipratropium (Duoneb 3 Mg/0.5 Mg (3 Ml) Ud) 3 ml IH [id number] [facility] Last Admin: 11/11/16 07:28 Dose: 3 ml Albuterol/Ipratropium (Duoneb 3 Mg/0.5 Mg (3 Ml) Ud) 3 ml IH Q2H PRN PRN Reason: Shortness of Breath Alprazolam (Xanax) 0.25 mg PO HS PRN; Protocol PRN Reason: Sleep Stop: 11/16/16 22:01 Last Admin: 11/10/16 21:49 Dose: 0.25 mg Amoxicillin/Clavulanate Potassium (Augmentin 875 Mg-125 Mg Tab) 1 tab PO Q12 [facility] PRN Reason: Protocol Stop: 11/16/16 00:01 Diphenhydramine HCl (Benadryl) 25 mg PO HS PRN PRN Reason: Insomnia Last Admin: 11/10/16 23:39 Dose: 25 mg Doxycycline Hyclate (Doryx) 100 mg PO Q12 [facility] PRN Reason: Protocol Stop: 11/17/16 10:01 Last Admin: 11/11/16 10:50 Dose: 100 mg Enoxaparin Sodium (Lovenox) 30 mg SC DAILY [facility] PRN Reason: Protocol Last Admin: 11/11/16 10:51 Dose: 30 mg Fentanyl (Duragesic) 1 patch TD Q72H [facility] Last Admin: 11/11/16 10:54 Dose: 1 patch Folic Acid (Folic Acid) 1 mg PO DAILY [facility] Last Admin: 11/11/16 10:50 Dose: 1 mg Furosemide (Lasix) 40 mg PO DAILY [facility] Last Admin: 11/11/16 10:49 Dose: 40 mg Gabapentin (Neurontin) 100 mg PO HS [facility] PRN Reason: Protocol Last Admin: 11/10/16 21:49 Dose: 100 mg Insulin Human Regular (Humulin R Med) 0 units SC ACHS [facility] PRN Reason: Protocol Last Admin: 11/11/16 07:53 Dose: Not Given Oxycodone HCl (Oxycodone Immediate Release Tab) 10 mg PO TID PRN PRN Reason: Pain, Mild (1-3) Last Admin: 11/11/16 06:13 Dose: 10 mg Pantoprazole Sodium (Protonix Ec Tab) 40 mg PO 0630 [facility] Last Admin: 11/11/16 06:14 Dose: 40 mg Prednisone (Prednisone Tab) 20 mg PO DAILY [facility] Last Admin: 11/11/16 10:50 Dose: 20 mg Silver Sulfadiazine (Silvadene 1% 20 Gm) 1 ea TOP DAILY [facility] Last Admin: 11/10/16 13:25 Dose: 1 appl Valsartan (Diovan) 320 mg PO DAILY [facility] Last Admin: 11/11/16 10:49 Dose: Not Given - Labs Labs: 11/09/16 07:00 11/09/16 07:00 - Constitutional Appears: Well - Head Exam Head Exam: ATRAUMATIC, NORMAL INSPECTION, NORMOCEPHALIC - Eye Exam Eye Exam: EOMI, Normal appearance, PERRL Pupil Exam: NORMAL ACCOMODATION, PERRL - ENT Exam ENT Exam: Mucous Membranes Moist, Normal Exam - Neck Exam Neck Exam: Full ROM, Normal Inspection. absent: Lymphadenopathy - Respiratory Exam Respiratory Exam: Clear to Ausculation Bilateral, NORMAL BREATHING PATTERN - Cardiovascular Exam Cardiovascular Exam: REGULAR RHYTHM, +S1, +S2. absent: Murmur - GI/Abdominal Exam GI & Abdominal Exam: Soft, Normal Bowel Sounds. absent: Tenderness - Rectal Exam Rectal Exam: NORMAL INSPECTION - Exam Exam: Circumcision, NORMAL INSPECTION External exam: NORMAL EXTERNAL EXAM Speculum exam: NORMAL SPECULUM EXAM Bimanual exam: NORMAL BIMANUAL EXAM - Extremities Exam Extremities Exam: Full ROM, Normal Capillary Refill, Normal Inspection. absent : Joint Swelling, Pedal Edema - Back Exam Back Exam: NORMAL INSPECTION - Neurological Exam Neurological Exam: Alert, Awake, CN II-XII Intact, Normal Gait, Oriented x3 - Psychiatric Exam Psychiatric exam: Normal Affect, Normal Mood - Skin Skin Exam: Dry, Intact, Normal Color, Warm Assessment and Plan (1) Anemia Status: Acute (2) Sepsis Status: Acute (3) Obstructive pneumonia Status: Acute (4) Pulmonary nodule Status: Acute (5) Metastasis Status: Acute (6) Bone metastases Status: Acute (7) Mediastinal adenopathy Status: Acute (8) Aortic aneurysm Status: Acute (9) Hepatic metastases Status: Acute (10) Bacterial pneumonia Status: Acute (11) Elevated procalcitonin Status: Acute - Assessment and Plan (Free Text) Plan: PO DOXY / PO AUGMENTIN NEW FINDINGS ON CT CA WITH METS LIVER LUNG BONE PORGNOSIS POOR WORK UP IN PROGRESS
[2016-11-11] MEDS: Silver Sulfadiazine 1% Cream (20 gm) TOP SCH (14:12)
[2016-11-11] MEDS: Amoxicillin-Clav 875-125 mg Tab PO SCH (21:49)
[2016-11-12] MEDS: oxyCODONE 10 mg Immediate Release Tab PO PRN ×3 (01:49→14:36)
[2016-11-12] MEDS: Albuterol-Ipratrop 3 mg / 0.5 (3 ml) UD IH SCH ×4 (02:30→19:45)
[2016-11-12] MEDS: Pantoprazole 40 mg EC Tab PO SCH (05:38)
[2016-11-12] MEDS: Amoxicillin-Clav 875-125 mg Tab PO SCH ×2 (09:40→21:39)
[2016-11-12] MEDS: Insulin Reg-MEDIUM-Coverage SC SCH ×5 (09:41→21:40)
[2016-11-12] MEDS: Enoxaparin 30 mg Syringe SC SCH (09:43)
[2016-11-12] MEDS: Silver Sulfadiazine 1% Cream (20 gm) TOP SCH (09:45)
[2016-11-12] MEDS ORDERED: Lidocaine 5% Patch TD SCH ×3 (10:00→14:35)
--- NOTE | 2016-11-12 11:21 | CP.PCM.CON ---
History of Present Illness - History of Present Illness History of Present Illness: Palliative consult requested by Dr Matt Tracey Reason: Goals of care 76 year old female who presented with weakness, difficulty ambulating and fall' s. The patient reports she has been losing weight. She sees Dr. Mcpherson for chronic back pain. 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 CT of the abdomen/pelvis showed metastatic lesion sin the right ischium and pubis, fracture of T12 vertebral body, hepatic lesions, small bowel dilatation possible early small bowel obstruction. Labs; leukocytosis, anemia, hyperglycemia. PMHx: back pain,lower extremity edema. 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 , lives with her son. Family History: Non contributory. Advance Care Planning: The patient has an advance Directive, a copy is on the chart. She is DNR Review of Systems - Constitutional Constitutional: Frequent Falls, Weight Loss, Weakness - EENT Additional comments: negative - Cardiovascular Cardiovascular: Leg Edema - Respiratory Respiratory: Dyspnea on Exertion Additional comments: negative - Gastrointestinal Additional comments: negative - Genitourinary Additional comments: negative - Musculoskeletal Musculoskeletal: Muscle Weakness Additional comments: difficulty walking - Integumentary Additional comments: negative - Endocrine Additional Comments: negative Past Patient History - Infectious Disease Hx of Infectious Diseases: None - Past Medical History & Family History Past Medical History?: Yes - Past Social History Smoking Status: Heavy Smoker > 10 Cigarettes Daily - CARDIAC Hx Hypertension: Yes - PULMONARY Hx Chronic Obstructive Pulmonary Disease (COPD): Yes - HEENT Hx HEENT Problems: Yes (wears glasses) - INTEGUMENTARY Hx Cellulitis: Yes Other/Comment: ulcers to lower extremeties - MUSCULOSKELETAL/RHEUMATOLOGICAL Hx Arthritis: Yes - PSYCHIATRIC Hx Substance Use: No - SURGICAL HISTORY Hx Joint Replacement: Yes (left knee) Meds Allergies/Adverse Reactions: Allergies Allergy/AdvReac Type Severity Reaction Status Date / Time No Known Allergies Allergy Verified 11/07/16 12:09 - Medications Medications: Current Medications Acetaminophen (Tylenol 325mg Tab) 650 mg PO Q6H PRN PRN Reason: Fever >100.4 F Last Admin: 11/11/16 08:01 Dose: 650 mg Albuterol/Ipratropium (Duoneb 3 Mg/0.5 Mg (3 Ml) Ud) 3 ml IH [id number] [facility] Last Admin: 11/12/16 08:16 Dose: 3 ml Albuterol/Ipratropium (Duoneb 3 Mg/0.5 Mg (3 Ml) Ud) 3 ml IH Q2H PRN PRN Reason: Shortness of Breath Alprazolam (Xanax) 0.25 mg PO HS PRN; Protocol PRN Reason: Sleep Stop: 11/16/16 22:01 Last Admin: 11/11/16 21:51 Dose: 0.25 mg Amoxicillin/Clavulanate Potassium (Augmentin 875 Mg-125 Mg Tab) 1 tab PO Q12 [facility] PRN Reason: Protocol Stop: 11/16/16 00:01 Last Admin: 11/12/16 09:40 Dose: 1 tab Diphenhydramine HCl (Benadryl) 25 mg PO HS PRN PRN Reason: Insomnia Last Admin: 11/11/16 21:49 Dose: 25 mg Doxycycline Hyclate (Doryx) 100 mg PO Q12 [facility] PRN Reason: Protocol Stop: 11/17/16 10:01 Last Admin: 11/12/16 09:41 Dose: 100 mg Enoxaparin Sodium (Lovenox) 30 mg SC DAILY [facility] PRN Reason: Protocol Last Admin: 11/12/16 09:43 Dose: 30 mg Fentanyl (Duragesic) 1 patch TD Q72H [facility] Last Admin: 11/11/16 10:54 Dose: 1 patch Folic Acid (Folic Acid) 1 mg PO DAILY [facility] Last Admin: 11/12/16 09:41 Dose: 1 mg Furosemide (Lasix) 40 mg PO DAILY [facility] Last Admin: 11/12/16 09:42 Dose: 40 mg Gabapentin (Neurontin) 100 mg PO HS [facility] PRN Reason: Protocol Last Admin: 11/11/16 21:49 Dose: 100 mg Insulin Human Regular (Humulin R Med) 0 units SC ACHS [facility] PRN Reason: Protocol Last Admin: 11/12/16 09:41 Dose: Not Given Lidocaine (Lidoderm) 1 ea TD DAILY [facility] Last Admin: 11/12/16 09:42 Dose: 1 ea Oxycodone HCl (Oxycodone Immediate Release Tab) 10 mg PO Q4H PRN PRN Reason: Pain, moderate (4-7) Last Admin: 11/12/16 05:43 Dose: 10 mg Pantoprazole Sodium (Protonix Ec Tab) 40 mg PO 0630 [facility] Last Admin: 11/12/16 05:38 Dose: 40 mg Prednisone (Prednisone Tab) 20 mg PO DAILY [facility] Last Admin: 11/12/16 09:43 Dose: 20 mg Silver Sulfadiazine (Silvadene 1% 20 Gm) 1 ea TOP DAILY [facility] Last Admin: 11/12/16 09:45 Dose: 1 appl Valsartan (Diovan) 320 mg PO DAILY [facility] Last Admin: 11/12/16 09:40 Dose: 320 mg Physical Exam - Constitutional Appears: Cachectic, Chronically Ill - Head Exam Head Exam: NORMOCEPHALIC - Eye Exam Eye Exam: Normal appearance, PERRL - ENT Exam ENT Exam: Mucous Membranes Moist, Normal Oropharynx - Neck Exam Neck exam: Positive for: Normal Inspection - Respiratory Exam Respiratory Exam: Chest Wall Tenderness, Decreased Breath Sounds, NORMAL BREATHING PATTERN - Cardiovascular Exam Cardiovascular Exam: REGULAR RHYTHM, +S1, +S2 - GI/Abdominal Exam GI & Abdominal Exam: Normal Bowel Sounds, Soft - Extremities Exam Additional comments: 2+ bilateral lower extremity edema, ulcer left calf - Back Exam Back exam: NORMAL INSPECTION, vertebral tenderness - Skin Skin Exam: Dry, Pallor - Additional Findings Additional findings: Palliative performance scale rating 50% Results - Vital Signs Recent Vital Signs: Last Vital Signs Temp 98 F 11/12/16 07:30 Pulse 96 H 11/12/16 07:30 Resp 22 11/12/16 07:30 BP 133/71 11/12/16 09:42 Pulse Ox 92 L 11/12/16 07:30 - Labs Result Diagrams: 11/09/16 07:00 11/09/16 07:00 Labs: Laboratory Results - last 24 hr 11/12/16 07:16 POC Glucose (mg/dL) 129 H Assessment & Plan - Assessment and Plan (Free Text) Assessment: 76 year old addicted with weakness, gait disturbance, weight loss,frequent falls. Workup revealed widespread metastatic disease of lungs, bones and liver. Awaiting biopsy of pulmonary nodule. The patient states she has weight loss over the past few weakness. She complains of chronic upper and lower back pain for which she has been seeing Dr Mcpherson. She states she was on Fentanyl 100 mcg transdermal patch at home. On 11/10,she fell against the sink in the bathroom and now has sharp left anterior lower rib pain, she states it is worse when she takes a deep breath in. X ray showed non displaced fractures of left 6th and 7th ribs. The patient has a Living Will on her chart. She affirms she is DNR/DNI. Plan: DNR/DNI Lidoderm transdermal patch to left lower rib cage. Monitor for opioid induced constipation> Colace 100 mg dialy
--- NOTE | 2016-11-12 12:13 | CP.PCM.PN ---
Subjective - Date & Time of Evaluation Date of Evaluation: 11/12/16 Time of Evaluation: 10:35 - Subjective Subjective: Comfortable in bed, not in distress, currently no cough, no fevers overnight, no SOB at rest currently. Objective - Vital Signs/Intake and Output Vital Signs (last 24 hours): Temp Pulse Resp BP Pulse Ox 98 F 96 H 22 133/71 92 L 11/12/16 07:30 11/12/16 07:30 11/12/16 07:30 11/12/16 07:30 11/12/16 07:30 Intake and Output: 11/12/16 11/12/16 06:59 18:59 Intake Total 600 Balance 600 - Medications Medications: Current Medications Acetaminophen (Tylenol 325mg Tab) 650 mg PO Q6H PRN PRN Reason: Fever >100.4 F Last Admin: 11/11/16 08:01 Dose: 650 mg Albuterol/Ipratropium (Duoneb 3 Mg/0.5 Mg (3 Ml) Ud) 3 ml IH [id number] [facility] Last Admin: 11/12/16 08:16 Dose: 3 ml Albuterol/Ipratropium (Duoneb 3 Mg/0.5 Mg (3 Ml) Ud) 3 ml IH Q2H PRN PRN Reason: Shortness of Breath Alprazolam (Xanax) 0.25 mg PO HS PRN; Protocol PRN Reason: Sleep Stop: 11/16/16 22:01 Last Admin: 11/11/16 21:51 Dose: 0.25 mg Amoxicillin/Clavulanate Potassium (Augmentin 875 Mg-125 Mg Tab) 1 tab PO Q12 [facility] PRN Reason: Protocol Stop: 11/16/16 00:01 Last Admin: 11/11/16 21:49 Dose: 1 tab Diphenhydramine HCl (Benadryl) 25 mg PO HS PRN PRN Reason: Insomnia Last Admin: 11/11/16 21:49 Dose: 25 mg Doxycycline Hyclate (Doryx) 100 mg PO Q12 [facility] PRN Reason: Protocol Stop: 11/17/16 10:01 Last Admin: 11/11/16 21:49 Dose: 100 mg Enoxaparin Sodium (Lovenox) 30 mg SC DAILY [facility] PRN Reason: Protocol Last Admin: 11/11/16 10:51 Dose: 30 mg Fentanyl (Duragesic) 1 patch TD Q72H [facility] Last Admin: 11/11/16 10:54 Dose: 1 patch Folic Acid (Folic Acid) 1 mg PO DAILY [facility] Last Admin: 11/11/16 10:50 Dose: 1 mg Furosemide (Lasix) 40 mg PO DAILY [facility] Last Admin: 11/11/16 10:49 Dose: 40 mg Gabapentin (Neurontin) 100 mg PO HS [facility] PRN Reason: Protocol Last Admin: 11/11/16 21:49 Dose: 100 mg Insulin Human Regular (Humulin R Med) 0 units SC ACHS [facility] PRN Reason: Protocol Last Admin: 11/11/16 21:49 Dose: Not Given Lidocaine (Lidoderm) 1 ea TD DAILY [facility] Oxycodone HCl (Oxycodone Immediate Release Tab) 10 mg PO Q4H PRN PRN Reason: Pain, moderate (4-7) Last Admin: 11/12/16 05:43 Dose: 10 mg Pantoprazole Sodium (Protonix Ec Tab) 40 mg PO 0630 [facility] Last Admin: 11/12/16 05:38 Dose: 40 mg Prednisone (Prednisone Tab) 20 mg PO DAILY [facility] Last Admin: 11/11/16 10:50 Dose: 20 mg Silver Sulfadiazine (Silvadene 1% 20 Gm) 1 ea TOP DAILY [facility] Last Admin: 11/11/16 14:12 Dose: 1 appl Valsartan (Diovan) 320 mg PO DAILY [facility] Last Admin: 11/11/16 10:49 Dose: Not Given - Labs Labs: 11/09/16 07:00 11/09/16 07:00 - Constitutional Appears: Non-toxic, No Acute Distress - Head Exam Head Exam: NORMAL INSPECTION - Neck Exam Neck Exam: absent: Meningismus - Respiratory Exam Respiratory Exam: Decreased Breath Sounds - Cardiovascular Exam Cardiovascular Exam: +S1, +S2 - GI/Abdominal Exam GI & Abdominal Exam: Soft. absent: Tenderness Assessment and Plan - Assessment and Plan (Free Text) Plan: Assessment consider post-obstructive pneumonia on the right upper lobe generalized lymphadenopathy, with bone, liver and lung lesions, consider malignancy Plan Continue PO Doxycycline and Augmentin for another 5-7 days will monitor clinically while the patient is in the hospital - cultures have been negative
[2016-11-12] MEDS ORDERED: Sodium Chloride 0.45% 1,000 ML IV SCH (17:00)
[2016-11-13] MEDS: Albuterol-Ipratrop 3 mg / 0.5 (3 ml) UD IH SCH ×4 (02:00→20:33)
[2016-11-13] MEDS: oxyCODONE 10 mg Immediate Release Tab PO PRN ×4 (03:04→17:25)
[2016-11-13] MEDS: Pantoprazole 40 mg EC Tab PO SCH (06:12)
[2016-11-13 07:37] LABS: BASO # 0.01 K/mm3 (0.0-2.0); BASO % 0.1 % (0.0-3.0); EOS # 1.3 (0.0-0.7); EOS % 6.9 % (1.5-5.0); GRAN # 14.68 (1.4-6.5); GRAN % 76.7 % (50.0-68.0); HEMOGLOBIN 9.1 gm/dL (12.0-16.0); LYMPH # 0.9 (1.2-3.4); LYMPH % 4.4 % (22.0-35.0); MEAN CELL VOLUME 89.6 fL (80.0-105.0); MEAN CORPUSCULAR HEMOGLOBIN 28.7 pg (25.0-35.0); MEAN PLATELET VOLUME 9.3 fl (7.0-11.0); MONO # 2.3 (0.1-0.6); MONO % 11.9 % (1.0-6.0); PLATELET COUNT 456 10^3/uL (120.0-450.0); RBC 3.17 10^6/uL (3.5-6.1); RED CELL DISTRIBUTION WIDTH 18.9 % (11.5-14.5); WHITE BLOOD COUNT 19.1 10^3/ul (4.5-11.0)
[2016-11-13 08:08] LABS: ALB/GLOB RATIO 1.3 (1.1-1.8); ALBUMIN 3.1 g/dL (3.0-4.8); CALCIUM 9.1 mg/dL (8.4-10.5)
[2016-11-13] MEDS: Amoxicillin-Clav 875-125 mg Tab PO SCH ×2 (09:38→21:41)
[2016-11-13] MEDS: Insulin Reg-MEDIUM-Coverage SC SCH ×4 (09:40→21:42)
[2016-11-13] MEDS: Lidocaine 5% Patch TD SCH ×2 (09:41→09:42)
[2016-11-13] MEDS: Enoxaparin 30 mg Syringe SC SCH (09:43)
[2016-11-13] MEDS: Silver Sulfadiazine 1% Cream (20 gm) TOP SCH (09:44)
[2016-11-13] MEDS ORDERED: Lidocaine 5% Patch TD SCH (10:00)
--- NOTE | 2016-11-13 12:19 | CP.PCM.PN ---
Subjective - Date & Time of Evaluation Date of Evaluation: 11/13/16 Time of Evaluation: 11:25 - Subjective Subjective: Comfortable in bed, no fevers overnight, no SOB at rest. Objective - Vital Signs/Intake and Output Vital Signs (last 24 hours): Temp Pulse Resp BP Pulse Ox 98.0 F 93 H 20 131/67 97 11/13/16 07:46 11/13/16 07:46 11/13/16 07:46 11/13/16 07:46 11/13/16 07:46 Intake and Output: 11/13/16 11/13/16 06:59 18:59 Intake Total 240 Balance 240 - Medications Medications: Current Medications Acetaminophen (Tylenol 325mg Tab) 650 mg PO Q6H PRN PRN Reason: Fever >100.4 F Last Admin: 11/11/16 08:01 Dose: 650 mg Albuterol/Ipratropium (Duoneb 3 Mg/0.5 Mg (3 Ml) Ud) 3 ml IH [id number] [facility] Last Admin: 11/13/16 08:00 Dose: 3 ml Albuterol/Ipratropium (Duoneb 3 Mg/0.5 Mg (3 Ml) Ud) 3 ml IH Q2H PRN PRN Reason: Shortness of Breath Alprazolam (Xanax) 0.25 mg PO HS PRN; Protocol PRN Reason: Sleep Stop: 11/16/16 22:01 Last Admin: 11/12/16 22:42 Dose: 0.25 mg Amoxicillin/Clavulanate Potassium (Augmentin 875 Mg-125 Mg Tab) 1 tab PO Q12 [facility] PRN Reason: Protocol Stop: 11/16/16 00:01 Last Admin: 11/12/16 21:39 Dose: 1 tab Diphenhydramine HCl (Benadryl) 25 mg PO HS PRN PRN Reason: Insomnia Last Admin: 11/12/16 22:42 Dose: 25 mg Docusate Sodium (Colace) 100 mg PO DAILY [facility] Last Admin: 11/12/16 17:55 Dose: 100 mg Doxycycline Hyclate (Doryx) 100 mg PO Q12 [facility] PRN Reason: Protocol Stop: 11/17/16 10:01 Last Admin: 11/12/16 21:38 Dose: 100 mg Enoxaparin Sodium (Lovenox) 30 mg SC DAILY [facility] PRN Reason: Protocol Last Admin: 11/12/16 09:43 Dose: 30 mg Fentanyl (Duragesic) 1 patch TD Q72H [facility] Last Admin: 11/11/16 10:54 Dose: 1 patch Folic Acid (Folic Acid) 1 mg PO DAILY [facility] Last Admin: 11/12/16 09:41 Dose: 1 mg Furosemide (Lasix) 40 mg PO DAILY [facility] Last Admin: 11/12/16 09:42 Dose: 40 mg Gabapentin (Neurontin) 100 mg PO HS [facility] PRN Reason: Protocol Last Admin: 11/12/16 21:38 Dose: 100 mg Insulin Human Regular (Humulin R Med) 0 units SC ACHS [facility] PRN Reason: Protocol Last Admin: 11/12/16 21:40 Dose: Not Given Lidocaine (Lidoderm) 1 ea TD DAILY [facility] Lidocaine (Lidoderm) 1 ea TD DAILY [facility] Oxycodone HCl (Oxycodone Immediate Release Tab) 10 mg PO Q4H PRN PRN Reason: Pain, moderate (4-7) Last Admin: 11/13/16 06:34 Dose: 10 mg Pantoprazole Sodium (Protonix Ec Tab) 40 mg PO 0630 [facility] Last Admin: 11/13/16 06:12 Dose: 40 mg Prednisone (Prednisone Tab) 20 mg PO DAILY [facility] Last Admin: 11/12/16 09:43 Dose: 20 mg Silver Sulfadiazine (Silvadene 1% 20 Gm) 1 ea TOP DAILY [facility] Last Admin: 11/12/16 09:45 Dose: 1 appl Valsartan (Diovan) 320 mg PO DAILY [facility] Last Admin: 11/12/16 09:40 Dose: 320 mg - Labs Labs: 11/13/16 07:00 11/13/16 07:00 - Constitutional Appears: Non-toxic, No Acute Distress - Head Exam Head Exam: NORMAL INSPECTION - Neck Exam Neck Exam: absent: Meningismus - Respiratory Exam Respiratory Exam: Decreased Breath Sounds - Cardiovascular Exam Cardiovascular Exam: +S1, +S2 - GI/Abdominal Exam GI & Abdominal Exam: Soft. absent: Tenderness Assessment and Plan - Assessment and Plan (Free Text) Plan: Assessment consider post-obstructive pneumonia on the right upper lobe generalized lymphadenopathy, with bone, liver and lung lesions, consider malignancy Plan Continue PO Doxycycline and Augmentin for another 4-6 days will monitor clinically while the patient is in the hospital - cultures have been negative since admission
[2016-11-13] MEDS ORDERED: Midazolam 2 MG/2 ML VIAL ONE (12:35)
[2016-11-13] MEDS ORDERED: Sodium Chloride 0.45% 1,000 ML IV SCH (13:15)
--- NOTE | 2016-11-13 14:50 | CT ---
PROCEDURE: CT guided left lower lobe lung biopsy. HISTORY: Multiple pulmonary nodules and bone metastasis. Evaluate for malignancy. PHYSICIAN(S): Alex Jules MD. TECHNIQUE: The relative risks and indications of the procedure were explained to the patient and consent obtained. The patient was placed prone on the CT scanner and preliminary images through the lung bases obtained. Conscious sedation and monitoring were provided throughout the procedure by a nurse. There are multiple bilateral pulmonary nodules present. A 3 cm nodule in the left lower lobe posterolaterally was selected for biopsy.. A left posterior approach was selected and the area prepped and draped in the usual sterile fashion. 1% Xylocaine was used to anesthetize the skin and soft tissues. A 18 gauge guiding needle was advanced into the 3 cm left lower lobe pulmonary nodule. Its position was confirmed with CT. Using coaxial technique, multiple core biopsies were obtained. The postprocedure images show no evidence of large pneumothorax or significant hemorrhage.. IMPRESSION: 1. CT-guided left lower lobe lung biopsy as described above.
--- NOTE | 2016-11-13 15:47 | RAD ---
HISTORY: lt lung bx COMPARISON: No prior. FINDINGS: LUNGS: There is no evidence of pneumothorax following biopsy. Lung nodules are again demonstrated PLEURA: No significant pleural effusion identified, no pneumothorax apparent. CARDIOVASCULAR: Normal. OSSEOUS STRUCTURES: No significant abnormalities. VISUALIZED UPPER ABDOMEN: Normal. OTHER FINDINGS: None. IMPRESSION: No evidence of post biopsy pneumothorax
[2016-11-14] MEDS: Albuterol-Ipratrop 3 mg / 0.5 (3 ml) UD IH SCH ×2 (01:57→07:32)
[2016-11-14] MEDS: oxyCODONE 10 mg Immediate Release Tab PO PRN ×3 (02:04→09:57)
[2016-11-14] MEDS: Pantoprazole 40 mg EC Tab PO SCH (06:04)
[2016-11-14] MEDS: Insulin Reg-MEDIUM-Coverage SC SCH (07:55)
[2016-11-14 07:58] VITALS: BP 119/70; PULSE 99; RESP 18; TEMP 98.6; O2SAT 92
[2016-11-14] MEDS: Amoxicillin-Clav 875-125 mg Tab PO SCH (09:53)
[2016-11-14] MEDS: Enoxaparin 30 mg Syringe SC SCH (09:56)
[2016-11-14] MEDS: Lidocaine 5% Patch TD SCH ×2 (09:56)
[2016-11-14] MEDS ORDERED: POLYETHYLENE GLYCOL 3350 17 GM/Dose PACKET PO SCH (10:00)
[2016-11-14] MEDS: Silver Sulfadiazine 1% Cream (20 gm) TOP SCH (10:07)
--- NOTE | 2016-11-14 11:29 | CP.PCM.PN ---
Subjective - Date & Time of Evaluation Date of Evaluation: 11/14/16 Time of Evaluation: 10:30 - Subjective Subjective: Patient had lung biopsy done yesterday, no fevers overnight, no SOB at rest. Objective - Vital Signs/Intake and Output Vital Signs (last 24 hours): Temp Pulse Resp BP Pulse Ox 98.6 F 99 H 18 119/70 92 L 11/14/16 07:57 11/14/16 07:57 11/14/16 07:57 11/14/16 07:57 11/14/16 07:57 Intake and Output: 11/14/16 11/14/16 06:59 18:59 Intake Total 900 Balance 900 - Medications Medications: Current Medications Acetaminophen (Tylenol 325mg Tab) 650 mg PO Q6H PRN PRN Reason: Fever >100.4 F Last Admin: 11/11/16 08:01 Dose: 650 mg Albuterol/Ipratropium (Duoneb 3 Mg/0.5 Mg (3 Ml) Ud) 3 ml IH [id number] [facility] Last Admin: 11/14/16 07:32 Dose: 3 ml Albuterol/Ipratropium (Duoneb 3 Mg/0.5 Mg (3 Ml) Ud) 3 ml IH Q2H PRN PRN Reason: Shortness of Breath Alprazolam (Xanax) 0.25 mg PO HS PRN; Protocol PRN Reason: Sleep Stop: 11/16/16 22:01 Last Admin: 11/12/16 22:42 Dose: 0.25 mg Amoxicillin/Clavulanate Potassium (Augmentin 875 Mg-125 Mg Tab) 1 tab PO Q12 [facility] PRN Reason: Protocol Stop: 11/16/16 00:01 Last Admin: 11/13/16 21:41 Dose: 1 tab Diphenhydramine HCl (Benadryl) 25 mg PO HS PRN PRN Reason: Insomnia Last Admin: 11/12/16 22:42 Dose: 25 mg Docusate Sodium (Colace) 100 mg PO DAILY [facility] Last Admin: 11/13/16 09:38 Dose: 100 mg Doxycycline Hyclate (Doryx) 100 mg PO Q12 [facility] PRN Reason: Protocol Stop: 11/17/16 10:01 Last Admin: 11/13/16 21:41 Dose: 100 mg Enoxaparin Sodium (Lovenox) 30 mg SC DAILY [facility] PRN Reason: Protocol Last Admin: 11/13/16 09:43 Dose: Not Given Fentanyl (Duragesic) 1 patch TD Q72H [facility] Last Admin: 11/11/16 10:54 Dose: 1 patch Folic Acid (Folic Acid) 1 mg PO DAILY [facility] Last Admin: 11/13/16 09:40 Dose: 1 mg Furosemide (Lasix) 40 mg PO DAILY [facility] Last Admin: 11/13/16 09:41 Dose: 40 mg Gabapentin (Neurontin) 100 mg PO HS [facility] PRN Reason: Protocol Last Admin: 11/13/16 21:41 Dose: 100 mg Insulin Human Regular (Humulin R Med) 0 units SC ACHS [facility] PRN Reason: Protocol Last Admin: 11/13/16 21:42 Dose: Not Given Lidocaine (Lidoderm) 1 ea TD DAILY [facility] Last Admin: 11/13/16 09:41 Dose: 1 ea Lidocaine (Lidoderm) 1 ea TD DAILY [facility] Last Admin: 11/13/16 09:42 Dose: 1 ea Oxycodone HCl (Oxycodone Immediate Release Tab) 10 mg PO Q4H PRN PRN Reason: Pain, moderate (4-7) Last Admin: 11/14/16 06:10 Dose: 10 mg Pantoprazole Sodium (Protonix Ec Tab) 40 mg PO 0630 [facility] Last Admin: 11/14/16 06:04 Dose: 40 mg Prednisone (Prednisone Tab) 20 mg PO DAILY [facility] Last Admin: 11/13/16 10:14 Dose: 20 mg Silver Sulfadiazine (Silvadene 1% 20 Gm) 1 ea TOP DAILY [facility] Last Admin: 11/13/16 09:44 Dose: 1 appl Valsartan (Diovan) 320 mg PO DAILY [facility] Last Admin: 11/13/16 09:39 Dose: 320 mg - Labs Labs: 11/13/16 07:00 11/13/16 07:00 - Constitutional Appears: Non-toxic, No Acute Distress - Head Exam Head Exam: NORMAL INSPECTION - ENT Exam ENT Exam: Mucous Membranes Moist - Neck Exam Neck Exam: absent: Meningismus - Respiratory Exam Respiratory Exam: Decreased Breath Sounds - Cardiovascular Exam Cardiovascular Exam: +S1, +S2 - GI/Abdominal Exam GI & Abdominal Exam: Soft. absent: Tenderness Assessment and Plan - Assessment and Plan (Free Text) Plan: Assessment consider post-obstructive pneumonia on the right upper lobe generalized lymphadenopathy, with bone, liver and lung lesions, consider malignancy S/P CT-guided lung biopsy POD #1 Plan Continue PO Doxycycline and Augmentin for another 3-5 days will monitor clinically while the patient is in the hospital - cultures have been negative since admission follow up biopsy results
--- NOTE | 2016-11-14 13:59 | CP.PCM.PN ---
Subjective - Date & Time of Evaluation Date of Evaluation: 11/14/16 Time of Evaluation: 09:00 - Subjective Subjective: Alert, complain of generalized back and rib pain. Pain in left anterior rib cage exacerbated with movement Objective - Vital Signs/Intake and Output Vital Signs (last 24 hours): Temp Pulse Resp BP Pulse Ox 98.6 F 99 H 18 119/70 92 L 11/14/16 07:57 11/14/16 07:57 11/14/16 07:57 11/14/16 09:55 11/14/16 07:57 Intake and Output: 11/14/16 11/14/16 06:59 18:59 Intake Total 900 Balance 900 - Labs Labs: 11/13/16 07:00 11/13/16 07:00 - Constitutional Appears: Cachectic, Chronically Ill - Head Exam Head Exam: NORMAL INSPECTION - Eye Exam Eye Exam: Normal appearance, PERRL - ENT Exam ENT Exam: Normal Exam - Neck Exam Neck Exam: Normal Inspection - Respiratory Exam Respiratory Exam: Decreased Breath Sounds, NORMAL BREATHING PATTERN - Cardiovascular Exam Cardiovascular Exam: REGULAR RHYTHM, +S1, +S2 - GI/Abdominal Exam GI & Abdominal Exam: Soft, Normal Bowel Sounds - Extremities Exam Extremities Exam: Full ROM, Pedal Edema - Back Exam Back Exam: vertebral tenderness - Skin Skin Exam: Dry, Pallor Assessment and Plan - Assessment and Plan (Free Text) Assessment: Alert, sitting up in chair. Appetite fair.States she had a large bowel movement yesterday. She has generalized low back and rib pain. The pain in left anterior rib cage exacerbated with movement. She is anticipating transition to [facility] for deconditioning. Plan: Will increase Fentanyl transdermal patch to 25 mcg. Continue Oxycodone IR for breakthrough Monitor for opioid induced constipation
--- NOTE | 2016-11-14 14:15 | CP.PCM.PCO ---
Physician Communication Note - Physician Communication Note Physician Communication Note: Fentanyl transdermal patch increased to 25mcg, please remove 12 mcg patch
--- NOTE | 2016-11-14 14:17 | CP.PCM.PCO ---
Physician Communication Note - Physician Communication Note Physician Communication Note: Fentanyl transdermal patch increased to 25mcg, please remove 12 mcg patch
--- NOTE | 2016-11-21 09:24 | PN ---
DATE: SUBJECTIVE: Patient is 76 years old. Seen and examined, sitting in chair, complaining of bilateral leg swelling. Still has generalized weakness *------*. Walking with assistance. Appetite seems to be improving. PHYSICAL EXAMINATION: VITAL SIGNS: She is afebrile, pulse 79, respirations 20, blood pressure 112/57. CARDIOPULMONARY: S1 and S2 audible. LUNGS: Bilateral diffuse decreased breath sounds. Few occasional expiratory rhonchi. ABDOMEN: Soft, nontender. No rebound or guarding. NEUROLOGIC: Patient is awake and alert. Able to communicate. EXTREMITIES: Bilateral leg +2 to +4 edema. LABORATORY DATA: There is no new lab available today. Blood sugar is 166. ASSESSMENT: 1. Metastatic cancer of lung, squamous cell carcinoma with bony metastasis. 2. Hypertension. 3. Community-acquired pneumonia. 4. Non-insulin dependent diabetes. 5. Back pain. 6. Bilateral leg edema. PLAN: Patient is currently on Cozaar 50 mg daily, doxycycline 100 mg q.12 when going to the bed and she is getting nebulizer treatment. She is on Duragesic patch. Monitor blood sugar. She is getting Lasix daily and she is on DVT prophylaxis. Continue her on gabapentin and nebulizer, and discharge plan for Thursday morning. Kranthi Tracey MD
== END 2016-11-14 12:03 | DRG 871 ==
LOC: ED 12:01 → ERH 14:29 → 5RSO 16:25
PROVIDERS: ADMIT Internal Medicine; ATTEND Internal Medicine
PROC: 0BBJ3ZX Excision of Left Lower Lung Lobe, Percutaneous Approach, Diagnostic (ICD-10-PCS; principal; 2016-11-13 12:30)
DX: A41.9 Sepsis, unspecified organism (principal); J15.9 Unspecified bacterial pneumonia; R64 Cachexia; C78.7 Secondary malignant neoplasm of liver and intrahepatic bile duct; J44.0 Chronic obstructive pulmonary disease with (acute) lower respiratory infection; C34.32 Malignant neoplasm of lower lobe, left bronchus or lung; C79.51 Secondary malignant neoplasm of bone; I71.2 Thoracic aortic aneurysm, without rupture; L97.229 Non-pressure chronic ulcer of left calf with unspecified severity; D64.9 Anemia, unspecified; R59.1 Generalized enlarged lymph nodes; Z66 Do not resuscitate; K59.03 Drug induced constipation; T40.2X5A Adverse effect of other opioids, initial encounter; Z96.652 Presence of left artificial knee joint; I10 Essential (primary) hypertension; R26.2 Difficulty in walking, not elsewhere classified; Z68.24 Body mass index [BMI] 24.0-24.9, adult; Z87.891 Personal history of nicotine dependence

== ENCOUNTER 2016-11-14 11:54 | Inpatient (IN) | payer OTHER ==
[2016-11-14] MEDS ORDERED: Albuterol-Ipratrop 3 mg / 0.5 (3 ml) UD IH PRN (13:08)
[2016-11-14 14:22] VITALS: BMI 25.7
[2016-11-14] MEDS: Albuterol-Ipratrop 3 mg / 0.5 (3 ml) UD IH SCH ×2 (14:35→20:02)
--- NOTE | 2016-11-14 14:44 | CP.PCM.PCO ---
Physician Communication Note - Physician Communication Note Physician Communication Note: Fentanyl transdermal patch increased to 25mcg, please remove 12mcg patch
[2016-11-14] MEDS: Insulin Reg-MEDIUM-Coverage SC SCH ×2 (17:51→21:28)
[2016-11-14] MEDS: Amoxicillin-Clav 875-125 mg Tab PO SCH (21:27)
[2016-11-15] MEDS: Albuterol-Ipratrop 3 mg / 0.5 (3 ml) UD IH SCH ×4 (01:08→21:51)
[2016-11-15] MEDS: Pantoprazole 40 mg EC Tab PO SCH (05:48)
[2016-11-15] MEDS: oxyCODONE 10 mg Immediate Release Tab PO PRN ×3 (06:36→21:10)
[2016-11-15] MEDS: Insulin Reg-MEDIUM-Coverage SC SCH ×4 (07:30→22:04)
[2016-11-15] MEDS: Amoxicillin-Clav 875-125 mg Tab PO SCH ×2 (09:42→21:09)
[2016-11-15] MEDS: Lidocaine 5% Patch TD SCH (09:48)
[2016-11-15] MEDS: Silver Sulfadiazine 1% Cream (20 gm) TOP SCH (09:49)
[2016-11-15] MEDS: Enoxaparin 30 mg Syringe SC SCH (09:49)
[2016-11-15] MEDS: POLYETHYLENE GLYCOL 3350 17 GM/Dose PACKET PO SCH (09:50)
--- NOTE | 2016-11-15 10:50 | CP.PCM.CON ---
History of Present Illness - History of Present Illness History of Present Illness: 76 year old female with PMH of HTN, COPD with history of heavy smoking, S/P left knee replacement was brought initially to [facility] because of weakness and shortness of breath. Work up revealed right upper lobe pneumonia (probably post-obstructive) with bone, liver and lung lesions and lung biopsy was done 2 days ago. She is now transferred to [facility] for continued medical therapy and physical rehab. Infectious Diseases consult is requested to continue her antibiotic therapy. Currently the patient is comfortable in bed, not in distress, no SOB at rest, no fever or chills, no nausea or vomiting, no headache or dizziness, no abdominal pain, no diarrhea, no dysuria. Review of Systems - Review of Systems All systems: reviewed and no additional remarkable complaints except (as per HPI ) Past Patient History - Infectious Disease Hx of Infectious Diseases: None - Past Medical History & Family History Past Medical History?: Yes - Past Social History Smoking Status: Heavy Smoker > 10 Cigarettes Daily - CARDIAC Hx Hypertension: Yes - PULMONARY Hx Chronic Obstructive Pulmonary Disease (COPD): Yes - HEENT Hx HEENT Problems: Yes (wears glasses) - INTEGUMENTARY Hx Cellulitis: Yes Other/Comment: ulcers to lower extremeties - MUSCULOSKELETAL/RHEUMATOLOGICAL Hx Arthritis: Yes - GASTROINTESTINAL Hx Gastrointestinal Disorders: No - GENITOURINARY/GYNECOLOGICAL Hx Genitourinary Disorders: No Hx Reproductive Disorders: No - PSYCHIATRIC Hx Substance Use: No - SURGICAL HISTORY Hx Joint Replacement: Yes (left knee) Meds Allergies/Adverse Reactions: Allergies Allergy/AdvReac Type Severity Reaction Status Date / Time No Known Allergies Allergy Verified 11/07/16 12:09 - Medications Medications: Current Medications Acetaminophen (Tylenol 325mg Tab) 650 mg PO Q6H PRN; Protocol PRN Reason: Fever >100.4 F Albuterol/Ipratropium (Duoneb 3 Mg/0.5 Mg (3 Ml) Ud) 3 ml IH Q2H PRN; Protocol PRN Reason: Shortness of Breath Albuterol/Ipratropium (Duoneb 3 Mg/0.5 Mg (3 Ml) Ud) 3 ml IH [id number] CLARA PRN Reason: Protocol Last Admin: 11/14/16 14:35 Dose: 3 ml Alprazolam (Xanax) 0.25 mg PO HS PRN; Protocol PRN Reason: Sleep Stop: 11/21/16 13:09 Amoxicillin/Clavulanate Potassium (Augmentin 875 Mg-125 Mg Tab) 1 tab PO Q12 CLARA PRN Reason: Protocol Diphenhydramine HCl (Benadryl) 25 mg PO HS PRN; Protocol PRN Reason: Insomnia Doxycycline Hyclate (Doryx) 100 mg PO Q12 CLARA PRN Reason: Protocol Enoxaparin Sodium (Lovenox) 30 mg SC DAILY CLARA PRN Reason: Protocol Fentanyl (Duragesic) 1 patch TD Q72H [facility] Last Admin: 11/14/16 15:35 Dose: 1 patch Folic Acid (Folic Acid) 1 mg PO DAILY CLARA PRN Reason: Protocol Furosemide (Lasix) 40 mg PO DAILY CLARA PRN Reason: Protocol Gabapentin (Neurontin) 100 mg PO HS CLARA PRN Reason: Protocol Insulin Human Regular (Humulin R Med) 0 units SC ACHS CLARA PRN Reason: Protocol Lidocaine (Lidoderm) 1 ea TD DAILY CLARA Oxycodone HCl (Oxycodone Immediate Release Tab) 10 mg PO Q4H PRN; Protocol PRN Reason: Pain, moderate (4-7) Pantoprazole Sodium (Protonix Ec Tab) 40 mg PO 0630 CLARA PRN Reason: Protocol Polyethylene Glycol (Miralax) 17 gm PO DAILY CLARA Prednisone (Prednisone Tab) 20 mg PO 0800 CLARA PRN Reason: Protocol Silver Sulfadiazine (Silvadene 1% 20 Gm) 1 ea TOP DAILY CLARA PRN Reason: Protocol Valsartan (Diovan) 320 mg PO DAILY CLARA PRN Reason: Protocol Physical Exam - Constitutional Appears: Non-toxic, No Acute Distress - Head Exam Head Exam: NORMAL INSPECTION - ENT Exam ENT Exam: Mucous Membranes Moist - Neck Exam Neck exam: Negative for: Lymphadenopathy, Meningismus - Respiratory Exam Respiratory Exam: Decreased Breath Sounds - Cardiovascular Exam Cardiovascular Exam: +S1, +S2 - GI/Abdominal Exam GI & Abdominal Exam: Soft. absent: Tenderness Assessment & Plan - Assessment and Plan (Free Text) Plan: Assessment consider post-obstructive pneumonia on the right upper lobe generalized lymphadenopathy, with bone, liver and lung lesions, consider malignancy S/P CT-guided lung biopsy POD #2 HTN COPD S/P left knee replacement Plan Continue PO Doxycycline and Augmentin for another 2-4 days will monitor clinically while the patient is in the hospital - cultures have been negative since admission follow up biopsy results of the lung
[2016-11-16] MEDS: Albuterol-Ipratrop 3 mg / 0.5 (3 ml) UD IH SCH ×4 (02:33→20:53)
[2016-11-16] MEDS: Pantoprazole 40 mg EC Tab PO SCH (06:03)
[2016-11-16] MEDS: Insulin Reg-MEDIUM-Coverage SC SCH ×3 (06:31→17:53)
[2016-11-16] MEDS: oxyCODONE 10 mg Immediate Release Tab PO PRN ×4 (07:03→21:07)
[2016-11-16] MEDS: Amoxicillin-Clav 875-125 mg Tab PO SCH ×2 (09:49→21:10)
[2016-11-16] MEDS: Enoxaparin 30 mg Syringe SC SCH (09:52)
[2016-11-16] MEDS: Lidocaine 5% Patch TD SCH (09:52)
[2016-11-16] MEDS: Silver Sulfadiazine 1% Cream (20 gm) TOP SCH (09:53)
[2016-11-16] MEDS: POLYETHYLENE GLYCOL 3350 17 GM/Dose PACKET PO SCH (09:53)
--- NOTE | 2016-11-16 13:53 | CP.PCM.PN ---
Subjective - Date & Time of Evaluation Date of Evaluation: 11/16/16 Time of Evaluation: 12:25 - Subjective Subjective: Comfortable in bed, afebrile, not in distress. Objective - Vital Signs/Intake and Output Vital Signs (last 24 hours): Temp Pulse Resp BP Pulse Ox 97.5 F L 102 H 20 114/67 93 L 11/16/16 06:00 11/16/16 06:00 11/16/16 06:00 11/16/16 06:00 11/16/16 06:00 - Medications Medications: Current Medications Acetaminophen (Tylenol 325mg Tab) 650 mg PO Q6H PRN; Protocol PRN Reason: Fever >100.4 F Last Admin: 11/16/16 06:01 Dose: 650 mg Albuterol/Ipratropium (Duoneb 3 Mg/0.5 Mg (3 Ml) Ud) 3 ml IH Q2H PRN; Protocol PRN Reason: Shortness of Breath Albuterol/Ipratropium (Duoneb 3 Mg/0.5 Mg (3 Ml) Ud) 3 ml IH [id number] CLARA PRN Reason: Protocol Last Admin: 11/16/16 07:27 Dose: 3 ml Alprazolam (Xanax) 0.25 mg PO HS PRN; Protocol PRN Reason: Sleep Stop: 11/21/16 13:09 Last Admin: 11/14/16 21:42 Dose: 0.25 mg Amoxicillin/Clavulanate Potassium (Augmentin 875 Mg-125 Mg Tab) 1 tab PO Q12 CLARA PRN Reason: Protocol Last Admin: 11/15/16 21:09 Dose: 1 tab Diphenhydramine HCl (Benadryl) 25 mg PO HS PRN; Protocol PRN Reason: Insomnia Last Admin: 11/15/16 21:09 Dose: 25 mg Doxycycline Hyclate (Doryx) 100 mg PO Q12 CLARA PRN Reason: Protocol Last Admin: 11/15/16 21:09 Dose: 100 mg Enoxaparin Sodium (Lovenox) 30 mg SC DAILY CLARA PRN Reason: Protocol Last Admin: 11/15/16 09:49 Dose: 30 mg Fentanyl (Duragesic) 1 patch TD Q72H [facility]ARA Last Admin: 11/14/16 15:35 Dose: 1 patch Folic Acid (Folic Acid) 1 mg PO DAILY CLARA PRN Reason: Protocol Last Admin: 11/15/16 09:46 Dose: 1 mg Furosemide (Lasix) 40 mg PO DAILY CLARA PRN Reason: Protocol Last Admin: 11/15/16 09:48 Dose: 40 mg Gabapentin (Neurontin) 100 mg PO HS CLARA PRN Reason: Protocol Last Admin: 11/15/16 21:12 Dose: 100 mg Insulin Human Regular (Humulin R Med) 0 units SC ACHS CLARA PRN Reason: Protocol Last Admin: 11/16/16 06:31 Dose: Not Given Lidocaine (Lidoderm) 1 ea TD DAILY CLARA Last Admin: 11/15/16 09:48 Dose: 1 ea Oxycodone HCl (Oxycodone Immediate Release Tab) 10 mg PO Q4H PRN; Protocol PRN Reason: Pain, moderate (4-7) Last Admin: 11/16/16 07:03 Dose: 10 mg Pantoprazole Sodium (Protonix Ec Tab) 40 mg PO 0630 CLARA PRN Reason: Protocol Last Admin: 11/16/16 06:03 Dose: 40 mg Polyethylene Glycol (Miralax) 17 gm PO DAILY CLARA Last Admin: 11/15/16 09:50 Dose: Not Given Prednisone (Prednisone Tab) 20 mg PO 0800 CLARA PRN Reason: Protocol Last Admin: 11/15/16 08:09 Dose: 20 mg Silver Sulfadiazine (Silvadene 1% 20 Gm) 1 ea TOP DAILY CLARA PRN Reason: Protocol Last Admin: 11/15/16 09:49 Dose: 1 appl Valsartan (Diovan) 320 mg PO DAILY CLARA PRN Reason: Protocol Last Admin: 11/15/16 09:42 Dose: 320 mg - Constitutional Appears: Non-toxic, No Acute Distress - Head Exam Head Exam: NORMAL INSPECTION - Neck Exam Neck Exam: absent: Meningismus - Respiratory Exam Respiratory Exam: Decreased Breath Sounds - Cardiovascular Exam Cardiovascular Exam: +S1, +S2 - GI/Abdominal Exam GI & Abdominal Exam: Soft. absent: Tenderness Assessment and Plan - Assessment and Plan (Free Text) Plan: Assessment consider post-obstructive pneumonia on the right upper lobe generalized lymphadenopathy, with bone, liver and lung lesions, probably from squamous cell lung cancer S/P CT-guided lung biopsy POD #3 HTN COPD S/P left knee replacement Plan Continue PO Doxycycline and Augmentin for another 1-3 days will monitor clinically while the patient is in the hospital - cultures have been negative since admission reviewed biopsy results of the lung which showed squamous cell carcinoma
[2016-11-17] MEDS: Albuterol-Ipratrop 3 mg / 0.5 (3 ml) UD IH SCH ×4 (01:46→21:00)
[2016-11-17] MEDS: oxyCODONE 10 mg Immediate Release Tab PO PRN ×2 (05:34→17:18)
[2016-11-17] MEDS: Pantoprazole 40 mg EC Tab PO SCH (05:35)
[2016-11-17] MEDS: Insulin Reg-MEDIUM-Coverage SC SCH ×5 (06:42→22:11)
--- NOTE | 2016-11-17 09:22 | CP.PCM.PN ---
Subjective - Date & Time of Evaluation Date of Evaluation: 11/17/16 Time of Evaluation: 09:00 - Subjective Subjective: Alert> Pain in left rib cage has somewhat . Patient reports it is not as "sharp" and that she is able to take a deep breath with out as much difficulty. She still complains of generalized pain in back and ribs and is taking the Oxycodone for breakthrough pain regularly Objective - Vital Signs/Intake and Output Vital Signs (last 24 hours): Temp Pulse Resp BP Pulse Ox 97.8 F 94 H 18 107/65 95 11/17/16 06:00 11/17/16 06:00 11/17/16 06:00 11/17/16 06:00 11/17/16 06:00 - Medications Medications: Current Medications Acetaminophen (Tylenol 325mg Tab) 650 mg PO Q6H PRN; Protocol PRN Reason: Fever >100.4 F Last Admin: 11/16/16 06:01 Dose: 650 mg Albuterol/Ipratropium (Duoneb 3 Mg/0.5 Mg (3 Ml) Ud) 3 ml IH Q2H PRN; Protocol PRN Reason: Shortness of Breath Albuterol/Ipratropium (Duoneb 3 Mg/0.5 Mg (3 Ml) Ud) 3 ml IH [id number] CLARA PRN Reason: Protocol Last Admin: 11/17/16 07:20 Dose: 3 ml Alprazolam (Xanax) 0.25 mg PO HS PRN; Protocol PRN Reason: Sleep Stop: 11/21/16 13:09 Last Admin: 11/14/16 21:42 Dose: 0.25 mg Amoxicillin/Clavulanate Potassium (Augmentin 875 Mg-125 Mg Tab) 1 tab PO Q12 CLARA PRN Reason: Protocol Last Admin: 11/16/16 21:10 Dose: 1 tab Diphenhydramine HCl (Benadryl) 25 mg PO HS PRN; Protocol PRN Reason: Insomnia Last Admin: 11/16/16 21:10 Dose: 25 mg Doxycycline Hyclate (Doryx) 100 mg PO Q12 CLARA PRN Reason: Protocol Last Admin: 11/16/16 21:10 Dose: 100 mg Enoxaparin Sodium (Lovenox) 30 mg SC DAILY CLARA PRN Reason: Protocol Last Admin: 11/16/16 09:52 Dose: 30 mg Fentanyl (Duragesic) 1 patch TD Q72H [facility]ARA Last Admin: 11/14/16 15:35 Dose: 1 patch Folic Acid (Folic Acid) 1 mg PO DAILY CLARA PRN Reason: Protocol Last Admin: 11/16/16 09:51 Dose: 1 mg Furosemide (Lasix) 40 mg PO DAILY CLARA PRN Reason: Protocol Last Admin: 11/16/16 09:51 Dose: 40 mg Gabapentin (Neurontin) 100 mg PO HS CLARA PRN Reason: Protocol Last Admin: 11/16/16 21:10 Dose: 100 mg Insulin Human Regular (Humulin R Med) 0 units SC ACHS CLARA PRN Reason: Protocol Last Admin: 11/17/16 06:43 Dose: Not Given Lidocaine (Lidoderm) 1 ea TD DAILY [facility]ARA Last Admin: 11/16/16 09:52 Dose: 1 ea Oxycodone HCl (Oxycodone Immediate Release Tab) 10 mg PO Q4H PRN; Protocol PRN Reason: Pain, moderate (4-7) Last Admin: 11/17/16 05:34 Dose: 10 mg Pantoprazole Sodium (Protonix Ec Tab) 40 mg PO 0630 CLARA PRN Reason: Protocol Last Admin: 11/17/16 05:35 Dose: 40 mg Polyethylene Glycol (Miralax) 17 gm PO DAILY CLARA Last Admin: 11/16/16 09:53 Dose: Not Given Prednisone (Prednisone Tab) 20 mg PO 0800 CLARA PRN Reason: Protocol Last Admin: 11/17/16 08:04 Dose: 20 mg Silver Sulfadiazine (Silvadene 1% 20 Gm) 1 ea TOP DAILY CLARA PRN Reason: Protocol Last Admin: 11/16/16 09:53 Dose: 1 appl Valsartan (Diovan) 320 mg PO DAILY CLARA PRN Reason: Protocol Last Admin: 11/16/16 09:50 Dose: 320 mg - Constitutional Appears: Cachectic, Chronically Ill - Head Exam Head Exam: NORMAL INSPECTION - Eye Exam Eye Exam: Normal appearance, PERRL
--- NOTE | 2016-11-17 09:28 | CP.PCM.CON ---
History of Present Illness - History of Present Illness History of Present Illness: Palliative consult requested by Dr Matt Tracey Reason: Goals of care Patient was transitioned to [facility] for deconditioning, completion of antibiotic therapy. She was admitted to the acute care setting with pneumonia, weakness, falls and intractable pain. Workup significant for metastatic disease in liver, lungs and bone. 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 PMHx: DM, HTM chronic back pain, fracture of left anterior 6th and 7th ribs and T12, s/p left knee replacement. Social History: Current smoker up until this admission, no alcohol or illicit drug use. Family History:Non contributory. Advance Care Planning: The patient has an Advance Directive. She is DNR/DNI Review of Systems - Constitutional Constitutional: Frequent Falls, Weight Loss - EENT Additional comments: negative - Cardiovascular Additional comments: negative - Respiratory Respiratory: Dyspnea on Exertion - Gastrointestinal Gastrointestinal: Constipation - Genitourinary Additional comments: negative - Musculoskeletal Musculoskeletal: Arthralgias, Back Pain Additional comments: left rib, thoracic back pain - Integumentary Additional comments: negative - Neurological Additional comments: negative - Psychiatric Psychiatric: Anxiety - Endocrine Additional Comments: negative Past Patient History - Infectious Disease Hx of Infectious Diseases: None - Past Medical History & Family History Past Medical History?: Yes - Past Social History Smoking Status: Heavy Smoker > 10 Cigarettes Daily - CARDIAC Hx Hypertension: Yes - PULMONARY Hx Chronic Obstructive Pulmonary Disease (COPD): Yes - HEENT Hx HEENT Problems: Yes (wears glasses) - INTEGUMENTARY Hx Cellulitis: Yes Other/Comment: ulcers to lower extremeties - MUSCULOSKELETAL/RHEUMATOLOGICAL Hx Arthritis: Yes - GASTROINTESTINAL Hx Gastrointestinal Disorders: No - GENITOURINARY/GYNECOLOGICAL Hx Reproductive Disorders: No - PSYCHIATRIC Hx Substance Use: No - SURGICAL HISTORY Hx Joint Replacement: Yes (left knee) Meds Allergies/Adverse Reactions: Allergies Allergy/AdvReac Type Severity Reaction Status Date / Time No Known Allergies Allergy Verified 11/07/16 12:09 - Medications Medications: Current Medications Acetaminophen (Tylenol 325mg Tab) 650 mg PO Q6H PRN; Protocol PRN Reason: Fever >100.4 F Last Admin: 11/16/16 06:01 Dose: 650 mg Albuterol/Ipratropium (Duoneb 3 Mg/0.5 Mg (3 Ml) Ud) 3 ml IH Q2H PRN; Protocol PRN Reason: Shortness of Breath Albuterol/Ipratropium (Duoneb 3 Mg/0.5 Mg (3 Ml) Ud) 3 ml IH [id number] CLARA PRN Reason: Protocol Last Admin: 11/17/16 07:20 Dose: 3 ml Alprazolam (Xanax) 0.25 mg PO HS PRN; Protocol PRN Reason: Sleep Stop: 11/21/16 13:09 Last Admin: 11/14/16 21:42 Dose: 0.25 mg Amoxicillin/Clavulanate Potassium (Augmentin 875 Mg-125 Mg Tab) 1 tab PO Q12 CLARA PRN Reason: Protocol Last Admin: 11/16/16 21:10 Dose: 1 tab Diphenhydramine HCl (Benadryl) 25 mg PO HS PRN; Protocol PRN Reason: Insomnia Last Admin: 11/16/16 21:10 Dose: 25 mg Doxycycline Hyclate (Doryx) 100 mg PO Q12 CLARA PRN Reason: Protocol Last Admin: 11/16/16 21:10 Dose: 100 mg Enoxaparin Sodium (Lovenox) 30 mg SC DAILY CLARA PRN Reason: Protocol Last Admin: 11/16/16 09:52 Dose: 30 mg Fentanyl (Duragesic) 1 patch TD Q72H [facility]ARA Last Admin: 11/14/16 15:35 Dose: 1 patch Folic Acid (Folic Acid) 1 mg PO DAILY CLARA PRN Reason: Protocol Last Admin: 11/16/16 09:51 Dose: 1 mg Furosemide (Lasix) 40 mg PO DAILY CLARA PRN Reason: Protocol Last Admin: 11/16/16 09:51 Dose: 40 mg Gabapentin (Neurontin) 100 mg PO HS CLARA PRN Reason: Protocol Last Admin: 11/16/16 21:10 Dose: 100 mg Insulin Human Regular (Humulin R Med) 0 units SC ACHS CLARA PRN Reason: Protocol Last Admin: 11/17/16 06:43 Dose: Not Given Lidocaine (Lidoderm) 1 ea TD DAILY CLARA Last Admin: 11/16/16 09:52 Dose: 1 ea Oxycodone HCl (Oxycodone Immediate Release Tab) 10 mg PO Q4H PRN; Protocol PRN Reason: Pain, moderate (4-7) Last Admin: 11/17/16 05:34 Dose: 10 mg Pantoprazole Sodium (Protonix Ec Tab) 40 mg PO 0630 CLARA PRN Reason: Protocol Last Admin: 11/17/16 05:35 Dose: 40 mg Polyethylene Glycol (Miralax) 17 gm PO DAILY [facility] Last Admin: 11/16/16 09:53 Dose: Not Given Prednisone (Prednisone Tab) 20 mg PO 0800 CLARA PRN Reason: Protocol Last Admin: 11/17/16 08:04 Dose: 20 mg Silver Sulfadiazine (Silvadene 1% 20 Gm) 1 ea TOP DAILY CLARA PRN Reason: Protocol Last Admin: 11/16/16 09:53 Dose: 1 appl Valsartan (Diovan) 320 mg PO DAILY CLARA PRN Reason: Protocol Last Admin: 11/16/16 09:50 Dose: 320 mg Physical Exam - Constitutional Appears: No Acute Distress, Chronically Ill - Head Exam Head Exam: NORMOCEPHALIC - Eye Exam Eye Exam: Normal appearance, PERRL - ENT Exam ENT Exam: Mucous Membranes Moist, Normal Oropharynx - Respiratory Exam Respiratory Exam: Decreased Breath Sounds, NORMAL BREATHING PATTERN - Cardiovascular Exam Cardiovascular Exam: REGULAR RHYTHM, +S1, +S2 - GI/Abdominal Exam GI & Abdominal Exam: Normal Bowel Sounds, Soft - Extremities Exam Extremities exam: Positive for: full ROM Additional comments: lower extremity edema 2+ - Back Exam Back exam: vertebral tenderness - Neurological Exam Neurological exam: Alert, Oriented x3 - Skin Skin Exam: Dry, Pallor - Additional Findings Additional findings: Palliative performance scale rating 50% Results - Vital Signs Recent Vital Signs: Last Vital Signs Temp 97.8 F 11/17/16 06:00 Pulse 94 H 11/17/16 06:00 Resp 18 11/17/16 06:00 BP 107/65 11/17/16 06:00 Pulse Ox 95 11/17/16 06:00 - Labs Labs: Laboratory Results - last 24 hr 11/16/16 11/16/16 11/16/16 11:19 16:20 21:33 POC Glucose (mg/dL) 147 H 164 H 116 H 11/17/16 04:31 POC Glucose (mg/dL) 85 Assessment & Plan - Assessment and Plan (Free Text) Assessment: 76 year old female who was transferred to TCU for deconditioning. She had been admitted to the acute setting with weakness,shortness of breath, lower extremity edema and generalized back and rib pain. Workup revealed metastatic processes in liver, lungs and bones. Biopsy of lung nodule showed squamous cell carcinoma. Patient also being treated for pneumonia. Alert. Pain in left rib cage has somewhat . Patient reports it is not as "sharp" and that she is able to take a deep breath with out as much difficulty. She still complains of generalized pain in back and ribs and is taking the Oxycodone for breakthrough pain regularly. Fentanyl transdermal patch had been increased from 12mcg to 25 mcg on Thursday. Patient reports she had been under Dr Gusman's care at home and had been using Fentanyl 100 mcg patches. Plan: Would consider increasing Fentanyl patch to 50 mcg today. Continue Oxycodone 10 mg IR for breakthrough pain. Continue carnet bowel regimen. Will assist family with establishing custodial goals of care.
[2016-11-17] MEDS: Amoxicillin-Clav 875-125 mg Tab PO SCH ×2 (10:46→22:10)
[2016-11-17] MEDS: Enoxaparin 30 mg Syringe SC SCH (10:48)
[2016-11-17] MEDS: Silver Sulfadiazine 1% Cream (20 gm) TOP SCH (10:48)
[2016-11-17] MEDS: Lidocaine 5% Patch TD SCH (10:50)
[2016-11-17] MEDS: POLYETHYLENE GLYCOL 3350 17 GM/Dose PACKET PO SCH (10:52)
[2016-11-18] MEDS: Albuterol-Ipratrop 3 mg / 0.5 (3 ml) UD IH SCH ×4 (02:55→19:27)
[2016-11-18] MEDS: Pantoprazole 40 mg EC Tab PO SCH (05:42)
[2016-11-18 07:31] LABS: BASO # 0.03 K/mm3 (0.0-2.0); BASO % 0.2 % (0.0-3.0); EOS % 5.3 % (1.5-5.0); GRAN # 13.92 (1.4-6.5); GRAN % 77.1 % (50.0-68.0); LYMPH # 1.1 (1.2-3.4); LYMPH % 5.8 % (22.0-35.0); MEAN CELL VOLUME 90.6 fL (80.0-105.0); MEAN CORPUSCULAR HEMOGLOBIN 29.2 pg (25.0-35.0); MEAN CORPUSCULAR HGB CONC 32.3 g/dl (31.0-37.0); MEAN PLATELET VOLUME 10.2 fl (7.0-11.0); MONO # 2.1 (0.1-0.6); MONO % 11.6 % (1.0-6.0); PLATELET COUNT 488 10^3/uL (120.0-450.0); RBC 3.42 10^6/uL (3.5-6.1); RED CELL DISTRIBUTION WIDTH 19.2 % (11.5-14.5); WHITE BLOOD COUNT 18.1 10^3/ul (4.5-11.0)
[2016-11-18 07:39] LABS: ALB/GLOB RATIO 1.2 (1.1-1.8); ALBUMIN 3.3 g/dL (3.0-4.8); ALT/SGPT 61 U/L (7-56); AST/SGOT 29 U/L (15-39); BLOOD UREA NITROGEN 81 mg/dL (7-21); CALCIUM 9.5 mg/dL (8.4-10.5); GFR AFRICAN-AMERICAN 33; GFR NON-AFRICAN AMERICAN 27
[2016-11-18] MEDS: oxyCODONE 10 mg Immediate Release Tab PO PRN ×2 (07:41→22:10)
[2016-11-18] MEDS: Insulin Reg-MEDIUM-Coverage SC SCH ×4 (07:42→22:42)
[2016-11-18 07:50] LABS: % IRON SATURATION 19 % (20-55); IRON 44 ug/dL (45-180); TOTAL IRON BINDING CAPACITY 229 ug/dL (265-497)
[2016-11-18] MEDS: Lidocaine 5% Patch TD SCH (10:21)
[2016-11-18] MEDS: Amoxicillin-Clav 875-125 mg Tab PO SCH ×2 (10:21→22:01)
[2016-11-18] MEDS: POLYETHYLENE GLYCOL 3350 17 GM/Dose PACKET PO SCH (10:22)
[2016-11-18] MEDS: Silver Sulfadiazine 1% Cream (20 gm) TOP SCH (10:22)
[2016-11-18] MEDS: Enoxaparin 30 mg Syringe SC SCH (10:22)
[2016-11-18] MEDS: Alum-Mag Hydrox-Simethicone Susp (30 mL) PO PRN ×2 (12:43→19:14)
--- NOTE | 2016-11-18 13:18 | CP.PCM.PN ---
Subjective - Date & Time of Evaluation Date of Evaluation: 11/18/16 Time of Evaluation: 10:00 - Subjective Subjective: Alert, ambulating with walker. States her pain is much better. Objective - Vital Signs/Intake and Output Vital Signs (last 24 hours): Temp Pulse Resp BP Pulse Ox 98.3 F 104 H 20 97/52 L 100 11/18/16 10:00 11/18/16 10:00 11/18/16 10:00 11/18/16 10:23 11/18/16 10:00 - Medications Medications: Current Medications Acetaminophen (Tylenol 325mg Tab) 650 mg PO Q6H PRN; Protocol PRN Reason: Fever >100.4 F Last Admin: 11/16/16 06:01 Dose: 650 mg Al Hydrox/Mg Hydrox/Simethicone (Maalox Plus 30 Ml) 30 ml PO Q6H PRN; Protocol PRN Reason: Indigestion / Heartburn Last Admin: 11/18/16 12:43 Dose: 30 ml Albuterol/Ipratropium (Duoneb 3 Mg/0.5 Mg (3 Ml) Ud) 3 ml IH Q2H PRN; Protocol PRN Reason: Shortness of Breath Albuterol/Ipratropium (Duoneb 3 Mg/0.5 Mg (3 Ml) Ud) 3 ml IH [id number] CLARA PRN Reason: Protocol Last Admin: 11/18/16 07:28 Dose: Not Given Alprazolam (Xanax) 0.25 mg PO HS PRN; Protocol PRN Reason: Sleep Stop: 11/21/16 13:09 Last Admin: 11/14/16 21:42 Dose: 0.25 mg Amoxicillin/Clavulanate Potassium (Augmentin 875 Mg-125 Mg Tab) 1 tab PO Q12 CLARA PRN Reason: Protocol Last Admin: 11/18/16 10:21 Dose: 1 tab Diphenhydramine HCl (Benadryl) 25 mg PO HS PRN; Protocol PRN Reason: Insomnia Last Admin: 11/16/16 21:10 Dose: 25 mg Doxycycline Hyclate (Doryx) 100 mg PO Q12 CLARA PRN Reason: Protocol Last Admin: 11/18/16 10:21 Dose: 100 mg Enoxaparin Sodium (Lovenox) 30 mg SC DAILY CLARA PRN Reason: Protocol Last Admin: 11/18/16 10:22 Dose: 30 mg Fentanyl (Duragesic) 1 patch TD Q72H CLARA Last Admin: 11/17/16 14:37 Dose: 1 patch Folic Acid (Folic Acid) 1 mg PO DAILY CLARA PRN Reason: Protocol Last Admin: 11/18/16 10:21 Dose: 1 mg Furosemide (Lasix) 40 mg PO DAILY CLARA PRN Reason: Protocol Last Admin: 11/18/16 10:23 Dose: Not Given Gabapentin (Neurontin) 100 mg PO HS CLARA PRN Reason: Protocol Last Admin: 11/17/16 22:12 Dose: 100 mg Insulin Human Regular (Humulin R Med) 0 units SC ACHS CLARA PRN Reason: Protocol Last Admin: 11/18/16 12:30 Dose: Not Given Lidocaine (Lidoderm) 1 ea TD DAILY [facility] Last Admin: 11/18/16 10:21 Dose: 1 ea Losartan Potassium (Cozaar) 50 mg PO DAILY CLARA Oxycodone HCl (Oxycodone Immediate Release Tab) 10 mg PO Q4H PRN; Protocol PRN Reason: Pain, moderate (4-7) Last Admin: 11/18/16 07:41 Dose: 10 mg Pantoprazole Sodium (Protonix Ec Tab) 40 mg PO 0630 CLARA PRN Reason: Protocol Last Admin: 11/18/16 05:42 Dose: 40 mg Polyethylene Glycol (Miralax) 17 gm PO DAILY [facility] Last Admin: 11/18/16 10:22 Dose: 17 gm Prednisone (Prednisone Tab) 20 mg PO 0800 CLARA PRN Reason: Protocol Last Admin: 11/18/16 07:46 Dose: 20 mg Silver Sulfadiazine (Silvadene 1% 20 Gm) 1 ea TOP DAILY CLARA PRN Reason: Protocol Last Admin: 11/18/16 10:22 Dose: 1 appl - Labs Labs: 11/18/16 06:15 11/18/16 06:15 - Constitutional Appears: No Acute Distress, Chronically Ill - Eye Exam Eye Exam: Normal appearance, PERRL - ENT Exam ENT Exam: Mucous Membranes Moist - Respiratory Exam Respiratory Exam: Decreased Breath Sounds, NORMAL BREATHING PATTERN - Cardiovascular Exam Cardiovascular Exam: Tachycardia, REGULAR RHYTHM, +S1, +S2 - GI/Abdominal Exam GI & Abdominal Exam: Soft, Normal Bowel Sounds - Extremities Exam Additional comments: bilateral lower extremity edema - Back Exam Back Exam: vertebral tenderness - Neurological Exam Neurological Exam: Alert, Oriented x3 - Skin Skin Exam: Dry, Warm Assessment and Plan - Assessment and Plan (Free Text) Assessment: 76 year old female admitted to TCU for completion of antibiotic therapy, deconditioning. During previous acute admission patient was found to have metastatic disease in lung,liver,bones. Lung biopsy showed squamous cell carcinoma. She also complained of intractable pain in back and left rib cage. Patient states her pain is much less,describes pain level at 4. Tolerating Fentanyl 50 mcg well. Requiring less oxycodone for breakthrough relief. Denies nausea, vomiting, weakness. Has been having regular bowel movements. Appetite somewhat improve.d Patient and family to meet with oncologist today to discuss treatment options. Family aware that if patient does not want to purse cancer treatment that they can have hospice services if desired. Psychosocial support given. Plan: Continue current medical regimens. No new recommendations. Will assist family with advance care planning
[2016-11-18 14:50] LABS: FOLATE > 20.0 ng/mL
[2016-11-19] MEDS: Albuterol-Ipratrop 3 mg / 0.5 (3 ml) UD IH SCH ×4 (02:22→20:05)
[2016-11-19] MEDS: Pantoprazole 40 mg EC Tab PO SCH (05:33)
[2016-11-19] MEDS: oxyCODONE 10 mg Immediate Release Tab PO PRN ×2 (05:38→21:32)
[2016-11-19] MEDS: Insulin Reg-MEDIUM-Coverage SC SCH ×4 (06:29→23:03)
[2016-11-19] MEDS: Lidocaine 5% Patch TD SCH (10:41)
[2016-11-19] MEDS: Silver Sulfadiazine 1% Cream (20 gm) TOP SCH (10:42)
[2016-11-19] MEDS: Enoxaparin 30 mg Syringe SC SCH (10:42)
[2016-11-19] MEDS: POLYETHYLENE GLYCOL 3350 17 GM/Dose PACKET PO SCH (10:42)
[2016-11-20] MEDS: Albuterol-Ipratrop 3 mg / 0.5 (3 ml) UD IH SCH ×4 (01:00→20:00)
[2016-11-20] MEDS: Insulin Reg-MEDIUM-Coverage SC SCH ×4 (06:41→22:30)
[2016-11-20] MEDS: Pantoprazole 40 mg EC Tab PO SCH (06:54)
[2016-11-20] MEDS: oxyCODONE 10 mg Immediate Release Tab PO PRN ×3 (08:37→20:29)
[2016-11-20] MEDS: POLYETHYLENE GLYCOL 3350 17 GM/Dose PACKET PO SCH (10:19)
[2016-11-20] MEDS: Silver Sulfadiazine 1% Cream (20 gm) TOP SCH (10:19)
[2016-11-20] MEDS: Enoxaparin 30 mg Syringe SC SCH (10:19)
[2016-11-20] MEDS: Lidocaine 5% Patch TD SCH (10:19)
[2016-11-20 20:40] LABS: ALBUMIN (PEP) 3.3 g/dL (3.8-4.8); ALPHA-1-GLOBULIN (PEP) 0.5 g/dL (0.2-0.3)
[2016-11-21] MEDS: Albuterol-Ipratrop 3 mg / 0.5 (3 ml) UD IH SCH ×4 (02:26→21:31)
[2016-11-21] MEDS: Pantoprazole 40 mg EC Tab PO SCH (06:07)
[2016-11-21] MEDS: oxyCODONE 10 mg Immediate Release Tab PO PRN (06:07)
[2016-11-21] MEDS: Insulin Reg-MEDIUM-Coverage SC SCH ×4 (07:12→23:16)
[2016-11-21] MEDS: Lidocaine 5% Patch TD SCH (09:25)
[2016-11-21] MEDS: Enoxaparin 30 mg Syringe SC SCH (09:27)
[2016-11-21] MEDS: Silver Sulfadiazine 1% Cream (20 gm) TOP SCH (09:27)
[2016-11-21] MEDS: POLYETHYLENE GLYCOL 3350 17 GM/Dose PACKET PO SCH (09:27)
--- NOTE | 2016-11-21 15:49 | CP.PCM.PN ---
Subjective - Date & Time of Evaluation Date of Evaluation: 11/21/16 Time of Evaluation: 15:00 - Subjective Subjective: Alert, offers no complaints. Objective - Vital Signs/Intake and Output Vital Signs (last 24 hours): Temp Pulse Resp BP Pulse Ox 98.7 F 60 18 115/48 L 91 L 11/21/16 10:00 11/21/16 10:00 11/21/16 10:00 11/21/16 10:00 11/21/16 10:00 Intake and Output: 11/21/16 11/21/16 06:59 18:59 Intake Total 240 Balance 240 - Medications Medications: Current Medications Acetaminophen (Tylenol 325mg Tab) 650 mg PO Q6H PRN; Protocol PRN Reason: Fever >100.4 F Last Admin: 11/21/16 06:07 Dose: 650 mg Al Hydrox/Mg Hydrox/Simethicone (Maalox Plus 30 Ml) 30 ml PO Q6H PRN; Protocol PRN Reason: Indigestion / Heartburn Last Admin: 11/18/16 19:14 Dose: 30 ml Albuterol/Ipratropium (Duoneb 3 Mg/0.5 Mg (3 Ml) Ud) 3 ml IH Q2H PRN; Protocol PRN Reason: Shortness of Breath Albuterol/Ipratropium (Duoneb 3 Mg/0.5 Mg (3 Ml) Ud) 3 ml IH [id number] CLARA PRN Reason: Protocol Last Admin: 11/21/16 13:34 Dose: 3 ml Diphenhydramine HCl (Benadryl) 25 mg PO HS PRN; Protocol PRN Reason: Insomnia Last Admin: 11/20/16 21:16 Dose: 25 mg Fentanyl (Duragesic) 1 patch TD Q72H CLARA Last Admin: 11/20/16 14:32 Dose: 1 patch Folic Acid (Folic Acid) 1 mg PO DAILY CLARA PRN Reason: Protocol Last Admin: 11/21/16 09:26 Dose: 1 mg Furosemide (Lasix) 40 mg PO DAILY CLARA PRN Reason: Protocol Last Admin: 11/21/16 09:31 Dose: 40 mg Gabapentin (Neurontin) 100 mg PO HS CLARA PRN Reason: Protocol Last Admin: 11/20/16 21:15 Dose: 100 mg Insulin Human Regular (Humulin R Med) 0 units SC ACHS CLARA PRN Reason: Protocol Last Admin: 11/21/16 11:37 Dose: Not Given Lidocaine (Lidoderm) 1 ea TD DAILY CLARA Last Admin: 11/21/16 09:25 Dose: 1 ea Losartan Potassium (Cozaar) 50 mg PO DAILY CLARA Last Admin: 11/21/16 09:31 Dose: 50 mg Oxycodone HCl (Oxycodone Immediate Release Tab) 10 mg PO Q4H PRN; Protocol PRN Reason: Pain, moderate (4-7) Last Admin: 11/21/16 06:07 Dose: 10 mg Pantoprazole Sodium (Protonix Ec Tab) 40 mg PO 0630 CLARA PRN Reason: Protocol Last Admin: 11/21/16 06:07 Dose: 40 mg Polyethylene Glycol (Miralax) 17 gm PO DAILY CLARA Last Admin: 11/21/16 09:27 Dose: 17 gm Prednisone (Prednisone Tab) 10 mg PO 0800 [facility] Silver Sulfadiazine (Silvadene 1% 20 Gm) 1 ea TOP DAILY CLARA PRN Reason: Protocol Last Admin: 11/21/16 09:27 Dose: 1 appl - Labs Labs: 11/18/16 06:15 11/18/16 06:15 - Constitutional Appears: Chronically Ill - Eye Exam Eye Exam: Normal appearance, PERRL - ENT Exam ENT Exam: Mucous Membranes Moist - Respiratory Exam Respiratory Exam: Clear to Ausculation Bilateral, NORMAL BREATHING PATTERN - Cardiovascular Exam Cardiovascular Exam: REGULAR RHYTHM, +S1, +S2 - GI/Abdominal Exam GI & Abdominal Exam: Soft, Normal Bowel Sounds - Back Exam Back Exam: vertebral tenderness - Skin Skin Exam: Dry, Pallor Assessment and Plan - Assessment and Plan (Free Text) Assessment: 76 year old female admitted to [facility] for completion of antibiotic therapy and rehab for deconditioining. 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 Patient feeling better. Offers no complaints. States that her pain is well controlled with Fentanyl 50 mcg transdermal patch. She is ambulating with walker. Patient is aware of her cancer diagnosis She does not want cancer treatment nor does she want hospice at this time. She is scheduled for discharge home tomorrow. She lives with her son.Family is supportive. The patient is DNR/DNI. We completed POLST. A copy is on the chart. Thank you for allowing me to participate in this patients care. Plan: Advance care planning. POLST:DNR/DNI
[2016-11-22] MEDS: Albuterol-Ipratrop 3 mg / 0.5 (3 ml) UD IH SCH ×2 (02:23→07:56)
[2016-11-22] MEDS: Pantoprazole 40 mg EC Tab PO SCH (05:40)
[2016-11-22] MEDS: oxyCODONE 10 mg Immediate Release Tab PO PRN (05:40)
[2016-11-22] MEDS: Silver Sulfadiazine 1% Cream (20 gm) TOP SCH (10:13)
[2016-11-22] MEDS: Lidocaine 5% Patch TD SCH (10:18)
[2016-11-22] MEDS: POLYETHYLENE GLYCOL 3350 17 GM/Dose PACKET PO SCH (10:18)
[2016-11-22] MEDS ORDERED: Apap-Butalbital-Caffeine 325-50-40mg Tab PO STA (10:26)
--- NOTE | 2016-11-22 11:12 | PN ---
The patient is in bed, no acute distress, was seen in 304, complains of generalized aches and pains and weakness. PHYSICAL EXAMINATION: VITAL SIGNS: Temperature is 98, blood pressure is 112/50, respiratory rate of 18. HEENT: Unremarkable. NECK: Supple. LUNGS: Decreased breath sounds. HEART: Normal S1 and S2. ABDOMEN: Soft, nontender. LABORATORY DATA: Reveal a white count of 18,000, hemoglobin of 10, platelets of 488. The patient's creatinine is 1.8 and immunology is reviewed and review of orders revealed the patient to be on prednisone and off of antibiotics except for p.o. doxycycline. ASSESSMENT AND PLAN: A 76-year-old female with post-obstructive pneumonia, right upper lobe; generalized adenopathy; bone, liver and lung lesions probably from squamous cell lung cancer, status post CAT scan-guided biopsy, postop procedure day #4 and currently on p.o. doxycycline. We will discontinue p.o. doxycycline and Augmentin was discontinued currently and we will follow the patient off of antibiotics and overall prognosis is quite poor. The pathology report from the lung nodule revealed the patient to have squamous cell cancer andTheresa Yanez's progress note from the 11/18/2070, is noted. Overall, prognosis is poor.
[2016-11-22 11:49] VITALS: BP 112/70; PULSE 84; RESP 20; TEMP 98.5; O2SAT 93
--- NOTE | 2016-11-22 11:53 | PN ---
DATE: 11/21/2016 SUBJECTIVE: The patient is a 76-year-old seen and examined, sitting in bed, seems to be comfortable. Still has leg swelling. No nausea, vomiting, no diarrhea. PHYSICAL EXAMINATION VITAL SIGNS: She is afebrile, pulse 60, respiration 18, blood pressure 115/48. LUNGS: Bilateral few occasional expiratory rhonchi. HEART: S1 and S2 audible. ABDOMEN: Soft, nontender, no rebound, and no guarding. NEUROLOGIC: She is awake and alert, able to ambulate small distance with a walker, gets short of breath on walking. ASSESSMENT: 1. Metastatic carcinoma of the lung. 2. Squamous cell carcinoma of the lung. 3. *------*hypertension. 4. Chronic degenerative disk disease. 5. Bilateral leg edema. 6. Chronic anemia. PLAN: The patient is going to be discharged in a.m. Prescription has been given for Losartan 50 mg daily. She will continue nebulizer treatment. She will be given *------* and she will stay on Neurontin 100 mg at bedtime. She is going to be maintained on small dose of steroid. She will get PET scan as outpatient and further managements will be done by oncologist, Dr. Calix. Kranthi Tracey MD
--- NOTE | 2016-11-24 01:53 | DS ---
HISTORY OF PRESENT ILLNESS: The patient is 76 years old who was initially admitted with bilateral leg swelling, generalized weakness, and difficulty walking. Initial impression was community-acquired pneumonia where CT scan of the chest shows multiple lung nodules with mets to the bone, so the patient had CT-guided biopsy done by Dr. Alex Jules that shows squamous cell carcinoma, probably lung in origin. The patient was evaluated by Dr. Calix and is scheduled to have PET scan done as an outpatient on Thursday. PHYSICAL EXAMINATION: GENERAL: The patient remains awake, alert, and oriented, communicative, walks small distance, and still has bilateral leg swelling. VITAL SIGNS: She is afebrile, pulse 84, respirations 20, and blood pressure 112/70. LUNGS: Bilateral fair airflow. No rhonchi or crackle. HEART: S1 and S2 audible. ABDOMEN: Soft and nontender. No rebound. No guarding. NEUROLOGIC: The patient is awake and alert and communicative, ambulatory with assistance. LABORATORY DATA: Blood sugar is 99. ASSESSMENT: 1. Metastatic lung carcinoma, squamous cell carcinoma. 2. Bony metastasis. 3. Generalized weakness. 4. Bilateral leg edema. 5. History of hypertension. 6. Deconditioning and difficulty walking. 7. Chronic obstructive pulmonary disease. 8. Active heavy smoker. PLAN: The patient is being discharged today. She is discharged home on valsartan 320 mg daily. She will resume her medication including Mobic and folic acid. She was given prednisone 10 mg daily and Percocet as needed and Protonix 40 mg daily. She is on gabapentin 100 mg at bedtime, Lasix 40 mg daily, Duragesic patch 75 mcg every third day, and Xanax 0.25 t.i.d. p.r.n. I will follow the patient as an outpatient and Dr. Calix will take care of her squamous cell carcinoma. Kranthi Tracey MD
== END 2016-11-22 13:48 | disposition home or self-care (01) | DRG 945 ==
LOC: TRCU 11:54
PROVIDERS: ADMIT Internal Medicine; ATTEND Internal Medicine
PROC: F07Z8FZ Transfer Training Treatment using Assistive, Adaptive, Supportive or Protective Equipment (ICD-10-PCS; 2016-11-15)
PROC: F07L6ZZ Therapeutic Exercise Treatment of Musculoskeletal System - Lower Back / Lower Extremity (ICD-10-PCS; 2016-11-15)
PROC: F07Z9FZ Gait Training/Functional Ambulation Treatment using Assistive, Adaptive, Supportive or Protective Equipment (ICD-10-PCS; principal; 2016-11-16)
PROC: F08Z2ZZ Grooming/Personal Hygiene Treatment (ICD-10-PCS; 2016-11-20)
PROC: F08Z1ZZ Dressing Techniques Treatment (ICD-10-PCS; 2016-11-20)
DX: R53.1 Weakness (principal); J18.9 Pneumonia, unspecified organism; J44.0 Chronic obstructive pulmonary disease with (acute) lower respiratory infection; C78.7 Secondary malignant neoplasm of liver and intrahepatic bile duct; C79.51 Secondary malignant neoplasm of bone; C34.90 Malignant neoplasm of unspecified part of unspecified bronchus or lung; E11.40 Type 2 diabetes mellitus with diabetic neuropathy, unspecified; R26.2 Difficulty in walking, not elsewhere classified; I10 Essential (primary) hypertension; D64.9 Anemia, unspecified; F17.200 Nicotine dependence, unspecified, uncomplicated; E87.8 Other disorders of electrolyte and fluid balance, not elsewhere classified; M51.9 Unspecified thoracic, thoracolumbar and lumbosacral intervertebral disc disorder; R60.0 Localized edema; Z66 Do not resuscitate; E78.5 Hyperlipidemia, unspecified; G89.29 Other chronic pain; M54.9 Dorsalgia, unspecified; Z96.652 Presence of left artificial knee joint

== ENCOUNTER 2016-11-25 09:54 | Emergency (ER) | payer MEDICARE, OTHER ==
[2016-11-25 10:11] VITALS: BMI 25.4
[2016-11-25] MEDS ORDERED: Morphine 4 mg/ml ISec IM STA (10:13)
[2016-11-25 10:16] VITALS: TEMP 98
--- NOTE | 2016-11-25 10:17 | ED PDOC ---
Arrival/HPI - General Chief Complaint: Trauma Time Seen by Provider: 11/25/16 10:13 Historian: Patient, Family - History of Present Illness Time/Duration: Other (Last night) Symptom Onset: Sudden Symptom Course: Unchanged Quality: Aching Severity Level: Severe Associated Symptoms (Text): 11/25/16 10:14 Witnessed mechanical fall last evening while getting out of her wheelchair to get into the bathtub. She hit her right anterior middle ribs against the edge of the sink. No loss of consciousness syncope dizziness and lightheadedness. Patient has a multiple narcotic pain medications. She had a PET scan this morning. No head trauma. No neck pain. No abdominal pain. Past Medical History - Infectious Disease Hx of Infectious Diseases: None - Cardiac Hx Hypertension: Yes - Pulmonary Hx Chronic Obstructive Pulmonary Disease (COPD): Yes - HEENT Hx HEENT Disorder: Yes (wears glasses) - Integumentary Hx Cellulitis: Yes Other/Comment: ulcers to lower extremeties - Musculoskeletal/Rheumatological Hx Arthritis: Yes - Gastrointestinal Hx Gastrointestinal Disorders: No - Genitourinary/Gynecological Hx Reproductive Disorders: No - Psychiatric Hx Substance Use: No - Surgical History Hx Joint Replacement: Yes (left knee) Family/Social History - Physician Review Nursing Documentation Reviewed: Yes Family/Social History: Unknown Family HX Smoking Status: Heavy Smoker > 10 Cigarettes Daily Hx Alcohol Use: No Hx Substance Use: No Allergies/Home Meds Allergies/Adverse Reactions: Allergies No Known Allergies Allergy (Verified 11/07/16 12:09) Home Medications: Home Meds Medication Instructions Recorded Confirmed Meloxicam [Mobic] 15 mg PO DAILY 11/07/16 11/25/16 Methotrexate 7 tab PO QWK 11/07/16 11/25/16 Review of Systems - Physician Review All systems were reviewed & negative as marked: Yes - Review of Systems Constitutional: Fatigue. absent: Fevers Respiratory: absent: SOB Cardiovascular: absent: Chest Pain Gastrointestinal: absent: Abdominal Pain Physical Exam Vital Signs Temp Pulse Resp BP Pulse Ox 11/25/16 10:09 98 F 122 H 22 116/64 96 Temperature: Afebrile Blood Pressure: Normal Pulse: Regular Respiratory Rate: Normal Appearance: Positive for: Well-Appearing, Non-Toxic, Comfortable, Uncomfortable , Other (Chronically ill-appearing) Pain Distress: Moderate Mental Status: Positive for: Alert and Oriented X 3 - Systems Exam Head: Present: Atraumatic, Normocephalic Neck: Present: Normal Range of Motion. No: MIDLINE TENDERNESS, Paraspinal Tenderness Respiratory/Chest: Present: Decreased Breath Sounds, Rhonchi, Tender to Palpation (Right anterior middle rib tenderness. No crepitus. No skin changes.) . No: Respiratory Distress, Wheezes, Rales, Tachypneic Cardiovascular: Present: Regular Rate and Rhythm, Normal S1, S2. No: Murmurs Abdomen: Present: Normal Bowel Sounds. No: Tenderness, Distention, Peritoneal Signs Upper Extremity: Present: Normal Inspection. No: Cyanosis, Edema Lower Extremity: Present: Edema (3+ bilateral lower extremity edema) Neurological: Present: GCS=15, CN II-XII Intact, Speech Normal, Motor Func Grossly Intact Skin: Present: Warm, Dry, Pale. No: Rashes Medical Decision Making - RAD Interpretation Radiology Orders: 11/25/16 10:13 RIBS RIGHT & PA CHEST [RAD] Stat Right ribs and chest show a fracture of the ninth right rib with no pneumothorax. Patient has had a biopsy of the mass. Husker Operator: ED Physician - Medication Orders Current Medication Orders: Discontinued Medications Morphine Sulfate (Morphine) 4 mg IM STAT STA Stop: 11/25/16 10:14 Last Admin: 11/25/16 10:22 Dose: 4 mg Disposition/Present on Arrival - Present on Arrival Any Indicators Present on Arrival: No History of DVT/PE: No History of Uncontrolled Diabetes: No Urinary Catheter: No History of Decub. Ulcer: No History Surgical Site Infection Following: None - Disposition Have Diagnosis and Disposition been Completed?: Yes Diagnosis: Rib fracture Disposition: HOME/ ROUTINE Disposition Time: 11:14 Patient Plan: Discharge Condition: FAIR Discharge Instructions (ExitCare): Rib Fracture (ED) Additional Instructions: Rest and ice. Narcotic pain medication from home. Incentive spirometer from home. Follow-up with PMD. Follow up in ER as needed. Referrals: PCP,NO [Non-Staff] - Follow up with primary
[2016-11-25 11:26] VITALS: BP 116/56; PULSE 110; RESP 20; O2SAT 95
--- NOTE | 2016-11-25 13:01 | RAD ---
PROCEDURE: Radiographs of the Chest and Right Ribs. HISTORY: trauma COMPARISON: 11/13/2016 TECHNIQUE: Frontal radiograph of the chest and multiple oblique radiographs of the right ribs were obtained. FINDINGS: RIGHT RIBS: Minimally displaced fractures are seen of the right lateral 9th and 10th ribs. There is no pneumothorax LUNGS: Nodules are again demonstrated in the left upper lobe. There is an interstitial infiltrate in the right upper lobe. PLEURA: No pneumothorax or pleural fluid. CARDIOVASCULAR: Mild cardiomegaly and aortic tortuosity OTHER FINDINGS: None. IMPRESSION: Minimally displaced fractures are seen of the right lateral 9th and 10th ribs. There is no pneumothorax
== END 2016-11-25 11:30 | disposition home or self-care (01) ==
LOC: ED 09:54
DX: S22.31XA Fracture of one rib, right side, initial encounter for closed fracture (principal); W01.198A Fall on same level from slipping, tripping and stumbling with subsequent striking against other object, initial encounter; Y93.E1 Activity, personal bathing and showering; Y92.89 Other specified places as the place of occurrence of the external cause
CPT/HCPCS: 71101; 96372; 99284; J2270